=== PATIENT | female | born 1985 | race American Indian/Alaskan Native ===

== ENCOUNTER 2016-10-18 05:39 | Inpatient (IN) | payer MEDICAID, SELFPAY ==
[~2016-10-18 05:39] MED LIST: Citric Acid/Sodium Citrate Solution 30 ML Cup PO ONE; Metoclopramide 10 MG/2 ML SDV IVPUSH ONE; Sodium Chloride 0.9% 10 ML Syringe FLUSH PRN
[2016-10-18] MEDS: Lactated Ringers 1,000 ML IV SCH ×2 (06:12→06:58)
[2016-10-18] MEDS ORDERED: Morphine PF 10 MG/10 ML SDV ONE (07:22)
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
[2016-10-18] MEDS ORDERED: Oxytocin 10 Units/1 ML SDV ONE (07:24)
[2016-10-18] MEDS ORDERED: Oxytocin/Lactated Ringers 10 UNIT/1,000 ML BAG IV SCH (07:30)
--- NOTE | 2016-10-18 07:30 | PCM.OPNOTE ---
- General Post-Op/Procedure Note Date of Surgery/Procedure: 10/18/16 Operative Procedure(s): Repeat Findings: * Significant scar tissue formation between the subcutaneous tissue and fascia * Large, central hernia with omentum noted to be protruding through * Uterus with very thin, bulging lower uterine segment * Baby boy in a breech presentation with APGARS of 7 & 9, weight of 7 lbs 11 oz Pre Op Diagnosis: 37 week gestation. Hx of 4 prior c-sections. Morbid obesity - BMI 45. Preeclampsia without severe features. Breech presentation Post-Op Diagnosis: As above with also a large midline hernia Anesthesia Technique: Spinal Primary Surgeon: Patricia Owens Secondary Surgeon: Brenda Tpaia Anesthesia Provider: Carmen Ojeda Pathology: * Cord blood collected * Placenta discarded Fluid Replacement, Intraop: 3,000 Output, Urine Amount: 50 EBL in mLs: 500 Complications: None Condition: Good Free Text/Narrative:: The risks, benefits, indications, potential complications, and alternatives were explained to the patient and informed consent obtained. After induction of anesthesia, the patient was placed in a supine position and then draped and prepped in the usual sterile manner. A Pfannenstiel incision was made and carried down through the subcutaneous tissue. With making this incision a large bulging area of omentum noted. This was carefully packed back into the abdomen and humble clamped were placed on areas of fascia lateral to this defect and then used to aid in clearing off scar tissue from fascia, rectus from fascia, and eventually incise the fascia sharply and extend incision laterally. Peritoneal opening was extended longitudinally with pressure. An attempt was made to create a bladder flap, but could not due to positioning. A low transverse uterine incision was made sharply with a scalpel and extended bluntly in a cephalocaudad direction. A baby boy was delivered from a breech presentation with APGARS as above. After the umbilical cord was clamped and cut cord blood was obtained for evaluation. The placenta was removed intact and appeared normal. The uterus was exteriorized and cleared of clots. The uterine outline, tubes and ovaries appeared normal. The uterine incision was closed with running locked sutures of 0 Vicryl. Hemostasis was noted. The uterus was then placed back into the abdomen. The infracolic gutters were cleared of blood clots. The fascia was then further cleared of scar tissue using sharp dissection, both superior and inferior to the fascia. The fascia was then reapproximated with running suture of a looped 1 PDS. Palpation was done underneath the fascia as this was closed to ensure no defect or weak areas where hernia could recur. After closed additional palpation done superior and inferior to suture line again ensure no defect. The subcutaneous tissue was irrigated with sterile warm normal saline, hemostasis obtained with cautery. This tissue was closed with two layers of running 0 vicryl suture. The skin was reapproximated with running Subcuticular 4-0 monocryl sutures. Instrument, sponge, and needle counts were correct prior the abdominal closure and at the conclusion of the case.
[2016-10-18] MEDS ORDERED: Lidocaine 1% 4 ML ONE (08:07)
[2016-10-18] MEDS ORDERED: Ondansetron 4 MG/2 ML SDV ONE (08:11)
[2016-10-18] MEDS ORDERED: ceFAZolin 1 GM Vial ONE (08:12)
[2016-10-18] MEDS ORDERED: ePHEDrine/Normal Saline 25 MG/5 ML Syringe ONE ×2 (08:17→08:48)
[2016-10-18] MEDS ORDERED: Ketorolac 30 MG/ML SDV ONE (08:40)
[2016-10-18] MEDS ORDERED: Phenylephrine/Normal Saline 100 MCG/ML 10 ML Syringe ONE (08:48)
[2016-10-18] MEDS ORDERED: Dexamethasone 4 MG/ML SDV ONE (08:49)
[2016-10-18] MEDS ORDERED: diphenhydrAMINE 50 MG/ML SDV IVPUSH PRN (09:10)
[2016-10-18] MEDS ORDERED: Promethazine 6.25 MG in Sodium Chloride 0.9% 9 ML IV PRN (09:10)
[2016-10-18] MEDS ORDERED: Meperidine PF 50 MG/ML Syringe IVPUSH PRN (09:10)
--- NOTE | 2016-10-18 09:47 | PCM.POSTAN ---
POST ANESTHESIA ASSESSMENT - MENTAL STATUS Mental Status: alert - VITAL SIGNS Pulse Rate: 56 SaO2: 97 Resp Rate: 23 Blood Pressure: 117/57 Temperature: 97.2 C - RESPIRATORY Respiratory Status: respiratory rate WNL, airway patent, O2 saturation stable - CARDIOVASCULAR CV Status: pulse rate WNL, blood pressure stable, slow pulse rate - GASTROINTESTINAL GI Status: no symptoms (currently no N/V in PACU, ) - POST OP HYDRATION Hydration Status: adequate & stable
[2016-10-18] MEDS ORDERED: Ondansetron 4 MG/2 ML SDV IV PRN (11:37)
[2016-10-18] MEDS ORDERED: Naloxone 0.4 MG/ML SDV IVPUSH PRN (11:37)
[2016-10-18] MEDS ORDERED: Dextrose 5%-Lactated Ringers 1,000 ML IV SCH (11:37)
[2016-10-18] MEDS ORDERED: Lanolin 100% Cream 7 GM Tube TOP PRN (11:37)
[2016-10-18] MEDS: Ketorolac 30 MG/ML SDV IVPUSH SCH ×2 (15:52→21:35)
[2016-10-18] MEDS ORDERED: Lactated Ringers 500 ML IV ONE (21:49)
[2016-10-19] MEDS: Ketorolac 30 MG/ML SDV IVPUSH SCH (03:37)
--- NOTE | 2016-10-19 07:11 | PCM.PNPP ---
- General Info Date of Service: 10/19/16 Functional Status: Reports: pain controlled, tolerating diet, ambulating - Review of Systems General: Reports: No Symptoms Pulmonary: Reports: no symptoms Cardiovascular: Reports: No Symptoms Gastrointestinal: Reports: Abdominal pain (managed with pain medications ) Genitourinary: Reports: no symptoms Musculoskeletal: Reports: no symptoms - Patient Data Vital Signs - most recent: Last Vital Signs Temp 36.1 C 10/19/16 00:00 Pulse 60 10/19/16 00:00 Resp 16 10/19/16 06:00 BP 148/66 H 10/19/16 00:00 Pulse Ox 97 10/19/16 06:00 Weight - most recent: 157.578 kg I&O - last 24 hours: Intake & Output 10/18/16 10/19/16 10/19/16 22:59 06:59 14:59 Intake Total 480 1950 Output Total 685 700 Balance -205 1250 Lab Results - last 24 hrs: Laboratory Results - last 24 hr 10/18/16 10/19/16 Range/Units 05:54 06:04 WBC 16.50 H (3.98-10.04) K/mm3 RBC 3.84 L (3.98-5.22) M/mm3 Hgb 11.3 (11.2-15.7) gm/L Hct 33.7 L (34.1-44.9) % MCV 87.8 (79.4-94.8) fl MCH 29.4 (25.6-32.2) pg MCHC 33.5 (32.2-35.5) g/dl RDW Std Deviation 44.1 (36.4-46.3) fL Plt Count 201 (182-369) K/mm3 MPV 12.3 (9.4-12.3) fl Blood Type O POSITIVE Gel Antibody Screen Negative Med Orders - Current: Current Medications Diphenhydramine HCl (Benadryl) 25 mg IVPUSH Q6H PRN PRN Reason: pruritis Docusate Sodium (Colace) 100 mg PO Q12H PRN PRN Reason: Constipation Emollient Ointment (Lansinoh Hpa) 0 gm TOP ASDIRECTED PRN PRN Reason: Sore Nipples Ibuprofen (Motrin) 600 mg PO Q6H PRN PRN Reason: mild pain or fever Measles/Mumps/Rubella Vaccine Live (M-M-R Ii Vaccine) 0.5 ml SUBCUT .ONCE ONE Stop: 10/20/16 10:01 Meperidine HCl (Demerol) 12.5 mg IVPUSH ONETIME PRN PRN Reason: shivering Stop: 10/19/16 09:11 Naloxone HCl (Narcan) 0.1 mg IVPUSH SEECOMMENT PRN PRN Reason: Respiratory Depression Ondansetron HCl (Zofran) 4 mg IV Q8H PRN PRN Reason: Nausea/Vomiting Oxycodone/Acetaminophen (Percocet 325-5 Mg) 2 tab PO Q4H PRN PRN Reason: Pain (moderate 4-6) Discontinued Medications Cefazolin Sodium (Ancef) Confirm Administered Dose 3 gm .ROUTE .STK-MED ONE Stop: 10/18/16 08:13 Citric Acid/Sodium Citrate (Bicitra Solution) 30 ml PO ONETIME ONE Stop: 10/18/16 05:31 Last Admin: 10/18/16 06:14 Dose: 30 ml Dexamethasone (Dexamethasone) Confirm Administered Dose 4 mg .ROUTE .STK-MED ONE Stop: 10/18/16 08:50 Ephedrine Sulfate (Ephedrine In Ns) Confirm Administered Dose 25 mg .ROUTE .STK- MED ONE Stop: 10/18/16 08:18 Ephedrine Sulfate (Ephedrine In Ns) Confirm Administered Dose 25 mg .ROUTE .STK- MED ONE Stop: 10/18/16 08:49 Lactated Ringer's (Ringers, Lactated) 1,000 mls @ 125 mls/hr IV ASDIRECTED [facility] Last Admin: 10/18/16 06:58 Dose: 125 mls/hr Oxytocin/Lactated Ringer's (Pitocin In Lr 10 Units/1,000 Ml) 10 unit in 1,000 mls @ 100 mls/hr IV ASDIRECTED [facility] Cefazolin Sodium/Dextrose 3 gm (/ Premix) 75 mls @ 100 mls/hr IV ONETIME ONE Stop: 10/18/16 08:14 Last Admin: 10/18/16 11:41 Dose: Not Given Lidocaine HCl (Xylocaine-Mpf 1%) Confirm Administered Dose 4 mls @ as directed .ROUTE .STK-MED ONE Stop: 10/18/16 08:08 Promethazine HCl 6.25 mg/ (Sodium Chloride) 9.25 mls @ 5 mls/min IV ONETIME PRN PRN Reason: Nausea Stop: 10/18/16 18:00 Dextrose/Lactated Ringer's (Dextrose 5%-Lactated Ringers) 1,000 mls @ 125 mls/ hr IV ASDIRECTED [facility] Stop: 10/18/16 19:36 Last Infusion: 10/18/16 15:54 Dose: 125 mls/hr Lactated Ringer's (Ringers, Lactated) 500 mls @ 500 mls/hr IV .BOLUS ONE Stop: 10/18/16 22:48 Last Admin: 10/18/16 22:15 Dose: 500 mls/hr Ketorolac Tromethamine (Toradol) Confirm Administered Dose 30 mg .ROUTE .STK- MED ONE Stop: 10/18/16 08:41 Ketorolac Tromethamine (Toradol) 30 mg IVPUSH Q6H [facility]IS[facility] Stop: 10/19/16 03:31 Last Admin: 10/19/16 03:37 Dose: 30 mg Metoclopramide HCl (Reglan) 10 mg IVPUSH ONETIME ONE Stop: 10/18/16 05:31 Last Admin: 10/18/16 06:14 Dose: 10 mg Morphine Sulfate (Duramorph Pf) Confirm Administered Dose 10 mg .ROUTE .STK-MED ONE Stop: 10/18/16 07:23 Ondansetron HCl (Zofran) Confirm Administered Dose 4 mg .ROUTE .STK-MED ONE Stop: 10/18/16 08:12 Oxytocin (Pitocin) Confirm Administered Dose 20 unit .ROUTE .STK-MED ONE Stop: 10/18/16 07:25 Phenylephrine HCl (Phenylephrine In Ns 100 Mcg/Ml) Confirm Administered Dose 1 mg .ROUTE .STK-MED ONE Stop: 10/18/16 08:49 Sodium Chloride (Saline Flush) 10 ml FLUSH ASDIRECTED PRN PRN Reason: Keep Vein Open - Infant Interaction Disposition, : in Room with Family Interaction: Holding Feeding: Attempted ; Nursed Fair/Poor, Bottle Fed Infant Support Person: - Recovery Exam Fundal Tone: Firm Fundal Level: At Umbilicus Fundal Placement: Midline Lochia Amount: Small Lochia Color: Rubra/Red Perineum Description: Intact, Minimal Bruising/Swelling Episiotomy/Laceration: None Bladder Status: Indwelling Catheter in Place Urinary Elimination: Indwelling Catheter - Exam General: alert, oriented, cooperative Lungs: Clear to auscultation, Normal respiratory effort Cardiovascular: Regular Rate, Regular Rhythm Abdomen: soft, tenderness (Appropriate post op) Extremities: edema Skin: warm, dry, intact Wound/Incisions: healing well, drainage (minimal blood drainage on dressing) - Problem List & Annotations (1) 37 weeks gestation of SNOMED Code(s): 51355734 Code(s): Z3A.37 - 37 WEEKS GESTATION OF Status: Acute Current Visit: Yes (2) History of SNOMED Code(s): 480183916 Code(s): Z98.891 - HISTORY OF UTERINE SCAR FROM PREVIOUS SURGERY Status: Acute Current Visit: Yes (3) Preeclampsia SNOMED Code(s): 649215521 Code(s): O14.90 - UNSPECIFIED PRE-ECLAMPSIA, UNSPECIFIED TRIMESTER Status: Acute Current Visit: Yes Qualifiers: Trimester: third trimester Qualified Code(s): O14.93 - Unspecified pre- eclampsia, third trimester (4) Breech presentation SNOMED Code(s): 5602819 Code(s): O32.1XX0 - MATERNAL CARE FOR BREECH PRESENTATION, UNSP Status: Acute Current Visit: Yes Qualifiers: Fetus number: single or unspecified fetus Qualified Code(s): O32.1XX0 - Maternal care for breech presentation, not applicable or unspecified (5) BMI 45.0-49.9, adult SNOMED Code(s): 152045439, 758169263 Code(s): Z68.42 - BODY MASS INDEX (BMI) 45.0-49.9, ADULT Status: Acute Current Visit: Yes - Problem List Review Problem List Initiated/Reviewed/Updated: Yes - My Orders Last 24 Hours: My Active Orders 10/18/16 08:00 Insert Morales Catheter [Insert Urinary Catheter] [OM.PC] Routine 10/18/16 11:37 Activity as Tolerated [RC] .Routine Antiembolic Devices [RC] PER UNIT ROUTINE Communication Order [RC] PER UNIT ROUTINE Intake and Output [RC] Q4HR May Shower [RC] PER UNIT ROUTINE Notify Provider Intake and Out [RC] ASDIRECTED RT Incentive Spirometry [RC] Q2HWA Acetaminophen/oxyCODONE [Percocet 325-5 MG] 2 tab PO Q4H PRN Docusate Sodium [Colace] 100 mg PO Q12H PRN Lanolin [Lansinoh HPA] See Dose Instructions TOP ASDIRECTED PRN Naloxone [Narcan] 0.1 mg IVPUSH SEECOMMENT PRN Ondansetron [Zofran] 4 mg IV Q8H PRN Assess Lochia [WOMSER] Per Unit Routine Assess Uterine Involution [WOMSER] Per Unit Routine Breast Pump [WOMSER] Per Unit Routine Heat Therapy [OM.PC] Per Unit Routine Sequential Compression Device [OM.PC] Routine 10/18/16 14:15 Urinary Catheter Assessment [RC] ASDIRECTED 10/18/16 Lunch Regular Diet [DIET] 10/19/16 09:30 Ibuprofen [Motrin] 600 mg PO Q6H PRN 10/19/16 10:00 Urinary Catheter Removal [RC] Per Unit Routine 10/20/16 10:00 Measles, Mumps & Rubella [M-M-R II Vaccine] 0.5 ml SUBCUT .ONCE ONE - Assessment Assessment:: 31 y/o G6 now [id number] POD#1 from [facility] at 37 3/7 wks - Plan Plan:: [facility] * Routine cares * Patient most likely going to bottle feed * Discharge home in 1-2 days Pre-eclampsia * BP's mostly mild range, but few upper limit mild range. No symptoms. Plan BP check in 1-2 weeks
[2016-10-19] MEDS: Ibuprofen 600 MG Tab PO PRN ×2 (08:56→18:39)
[2016-10-19] MEDS: Acetaminophen/oxyCODONE 325-5 MG Tab PO PRN ×3 (11:14→21:13)
[2016-10-19] MEDS: Docusate Sodium 100 MG Cap PO PRN ×2 (11:16→23:14)
[2016-10-19] MEDS: Measles, Mumps & Rubella Vaccine 0.5 ML SDV SUBCUT ONE (23:04)
[2016-10-20] MEDS: Ibuprofen 600 MG Tab PO PRN (01:42)
--- NOTE | 2016-10-20 05:25 | PCM.PNPP ---
- General Info Date of Service: 10/20/16 Functional Status: Reports: pain controlled, tolerating diet, ambulating, urinating - Review of Systems General: Reports: No Symptoms Pulmonary: Reports: no symptoms Cardiovascular: Reports: No Symptoms Gastrointestinal: Reports: Abdominal pain (managed wtih medications) Genitourinary: Reports: no symptoms Musculoskeletal: Reports: no symptoms Neurological: Reports: No Symptoms - Patient Data Vital Signs - most recent: Last Vital Signs Temp 36.7 C 10/19/16 20:00 Pulse 56 L 10/19/16 20:00 Resp 18 10/19/16 20:00 BP 156/72 H 10/19/16 21:57 Pulse Ox 100 10/19/16 20:00 Weight - most recent: 157.578 kg I&O - last 24 hours: Intake & Output 10/19/16 10/19/16 10/20/16 14:59 22:59 06:59 Intake Total 120 Output Total 2950 550 Balance -2950 -430 Lab Results - last 24 hrs: Laboratory Results - last 24 hr 10/19/16 Range/Units 06:04 WBC 16.50 H (3.98-10.04) K/mm3 RBC 3.84 L (3.98-5.22) M/mm3 Hgb 11.3 (11.2-15.7) gm/L Hct 33.7 L (34.1-44.9) % MCV 87.8 (79.4-94.8) fl MCH 29.4 (25.6-32.2) pg MCHC 33.5 (32.2-35.5) g/dl RDW Std Deviation 44.1 (36.4-46.3) fL Plt Count 201 (182-369) K/mm3 MPV 12.3 (9.4-12.3) fl Med Orders - Current: Current Medications Docusate Sodium (Colace) 100 mg PO Q12H PRN PRN Reason: Constipation Last Admin: 10/19/16 23:14 Dose: 100 mg Emollient Ointment (Lansinoh Hpa) 0 gm TOP ASDIRECTED PRN PRN Reason: Sore Nipples Ibuprofen (Motrin) 600 mg PO Q6H PRN PRN Reason: mild pain or fever Last Admin: 10/20/16 01:42 Dose: 600 mg Measles/Mumps/Rubella Vaccine Live (M-M-R Ii Vaccine) 0.5 ml SUBCUT .ONCE ONE Stop: 10/20/16 10:01 Last Admin: 10/19/16 23:04 Dose: 0.5 ml Ondansetron HCl (Zofran) 4 mg IV Q8H PRN PRN Reason: Nausea/Vomiting Oxycodone/Acetaminophen (Percocet 325-5 Mg) 2 tab PO Q4H PRN PRN Reason: Pain (moderate 4-6) Last Admin: 10/19/16 21:13 Dose: 2 tab Discontinued Medications Cefazolin Sodium (Ancef) Confirm Administered Dose 3 gm .ROUTE .STK-MED ONE Stop: 10/18/16 08:13 Citric Acid/Sodium Citrate (Bicitra Solution) 30 ml PO ONETIME ONE Stop: 10/18/16 05:31 Last Admin: 10/18/16 06:14 Dose: 30 ml Dexamethasone (Dexamethasone) Confirm Administered Dose 4 mg .ROUTE .STK-MED ONE Stop: 10/18/16 08:50 Diphenhydramine HCl (Benadryl) 25 mg IVPUSH Q6H PRN PRN Reason: pruritis Ephedrine Sulfate (Ephedrine In Ns) Confirm Administered Dose 25 mg .ROUTE .STK- MED ONE Stop: 10/18/16 08:18 Ephedrine Sulfate (Ephedrine In Ns) Confirm Administered Dose 25 mg .ROUTE .STK- MED ONE Stop: 10/18/16 08:49 Lactated Ringer's (Ringers, Lactated) 1,000 mls @ 125 mls/hr IV ASDIRECTED [facility] Last Admin: 10/18/16 06:58 Dose: 125 mls/hr Oxytocin/Lactated Ringer's (Pitocin In Lr 10 Units/1,000 Ml) 10 unit in 1,000 mls @ 100 mls/hr IV ASDIRECTED [facility] Cefazolin Sodium/Dextrose 3 gm (/ Premix) 75 mls @ 100 mls/hr IV ONETIME ONE Stop: 10/18/16 08:14 Last Admin: 10/18/16 11:41 Dose: Not Given Lidocaine HCl (Xylocaine-Mpf 1%) Confirm Administered Dose 4 mls @ as directed .ROUTE .STK-MED ONE Stop: 10/18/16 08:08 Promethazine HCl 6.25 mg/ (Sodium Chloride) 9.25 mls @ 5 mls/min IV ONETIME PRN PRN Reason: Nausea Stop: 10/18/16 18:00 Dextrose/Lactated Ringer's (Dextrose 5%-Lactated Ringers) 1,000 mls @ 125 mls/ hr IV ASDIRECTED DAISHA Stop: 10/18/16 19:36 Last Infusion: 10/18/16 15:54 Dose: 125 mls/hr Lactated Ringer's (Ringers, Lactated) 500 mls @ 500 mls/hr IV .BOLUS ONE Stop: 10/18/16 22:48 Last Admin: 10/18/16 22:15 Dose: 500 mls/hr Ketorolac Tromethamine (Toradol) Confirm Administered Dose 30 mg .ROUTE .STK- MED ONE Stop: 10/18/16 08:41 Ketorolac Tromethamine (Toradol) 30 mg IVPUSH Q6H [facility] Stop: 10/19/16 03:31 Last Admin: 10/19/16 03:37 Dose: 30 mg Meperidine HCl (Demerol) 12.5 mg IVPUSH ONETIME PRN PRN Reason: shivering Stop: 10/19/16 09:11 Metoclopramide HCl (Reglan) 10 mg IVPUSH ONETIME ONE Stop: 10/18/16 05:31 Last Admin: 10/18/16 06:14 Dose: 10 mg Morphine Sulfate (Duramorph Pf) Confirm Administered Dose 10 mg .ROUTE .STK-MED ONE Stop: 10/18/16 07:23 Naloxone HCl (Narcan) 0.1 mg IVPUSH SEECOMMENT PRN PRN Reason: Respiratory Depression Ondansetron HCl (Zofran) Confirm Administered Dose 4 mg .ROUTE .STK-MED ONE Stop: 10/18/16 08:12 Oxytocin (Pitocin) Confirm Administered Dose 20 unit .ROUTE .STK-MED ONE Stop: 10/18/16 07:25 Phenylephrine HCl (Phenylephrine In Ns 100 Mcg/Ml) Confirm Administered Dose 1 mg .ROUTE .STK-MED ONE Stop: 10/18/16 08:49 Sodium Chloride (Saline Flush) 10 ml FLUSH ASDIRECTED PRN PRN Reason: Keep Vein Open - Interaction Disposition, : [place] in Room with Family Infant Interaction: Holding Feeding: Bottle Fed Infant Support Person: - Recovery Exam Fundal Tone: Firm Fundal Level: 1 Fingerbreadths Below Umbilicus Fundal Placement: Midline Lochia Amount: Small Lochia Color: Rubra/Red Perineum Description: Intact, Minimal Bruising/Swelling Episiotomy/Laceration: None Bladder Status: Voiding Urinary Elimination: Voided - Exam General: alert, oriented, cooperative Lungs: Clear to auscultation, Normal respiratory effort Cardiovascular: Regular Rate, Regular Rhythm Abdomen: soft, no distension, tenderness (appropriate post op) Extremities: edema Skin: warm, dry, intact Wound/Incisions: healing well, no drainage - Problem List & Annotations (1) 37 weeks gestation of SNOMED Code(s): 30558185 Code(s): Z3A.37 - 37 WEEKS GESTATION OF Status: Acute Current Visit: Yes (2) History of SNOMED Code(s): 766887356 Code(s): Z98.891 - HISTORY OF UTERINE SCAR FROM PREVIOUS SURGERY Status: Acute Current Visit: Yes (3) Preeclampsia SNOMED Code(s): 568224624 Code(s): O14.90 - UNSPECIFIED PRE-ECLAMPSIA, UNSPECIFIED TRIMESTER Status: Acute Current Visit: Yes Qualifiers: Trimester: third trimester Qualified Code(s): O14.93 - Unspecified pre- eclampsia, third trimester (4) Breech presentation SNOMED Code(s): 8065116 Code(s): O32.1XX0 - MATERNAL CARE FOR BREECH PRESENTATION, UNSP Status: Acute Current Visit: Yes Qualifiers: Fetus number: single or unspecified fetus Qualified Code(s): O32.1XX0 - Maternal care for breech presentation, not applicable or unspecified (5) BMI 45.0-49.9, adult SNOMED Code(s): 723889789, 136463459 Code(s): Z68.42 - BODY MASS INDEX (BMI) 45.0-49.9, ADULT Status: Acute Current Visit: Yes (6) S/P SNOMED Code(s): 675999539, 832308572 Code(s): Z98.891 - HISTORY OF UTERINE SCAR FROM PREVIOUS SURGERY Status: Acute Current Visit: Yes - Problem List Review Problem List Initiated/Reviewed/Updated: Yes - My Orders Last 24 Hours: My Active Orders 10/19/16 09:30 Ibuprofen [Motrin] 600 mg PO Q6H PRN 10/19/16 10:00 Urinary Catheter Removal [RC] Per Unit Routine 10/20/16 10:00 Measles, Mumps & Rubella [M-M-R II Vaccine] 0.5 ml SUBCUT .ONCE ONE - Assessment Assessment:: 31 y/o G6 now P5015 POD#2 from RLTCS at 37 3/7 wks - Plan Plan:: RLTCS * Routine cares * Bottle feeding * Discharge home today per patient preference as long as BP remain stable Pre-eclampsia * Few upper limit of normal BP's overnight, this morning value with systolic of 140 though. Patient otherwise doing well. As long as AM BP's remain mild range will d/c home today per patient preference. She will follow up next week for a BP check
--- NOTE | 2016-10-20 07:00 | PCM.DCSUM1 ---
Discharge Summary - Discharge Data Discharge Date: 10/20/16 Discharge Disposition: Home, Self-Care 01 Condition: Good - Discharge Diagnosis/Problem(s) (1) 37 weeks gestation of SNOMED Code(s): 91426177 ICD Code: Z3A.37 - 37 WEEKS GESTATION OF Status: Acute Current Visit: Yes (2) History of SNOMED Code(s): 197838875 ICD Code: Z98.891 - HISTORY OF UTERINE SCAR FROM PREVIOUS SURGERY Status: Acute Current Visit: Yes (3) Preeclampsia SNOMED Code(s): 595768892 ICD Code: O14.90 - UNSPECIFIED PRE-ECLAMPSIA, UNSPECIFIED TRIMESTER Status : Acute Current Visit: Yes Qualifiers: Trimester: third trimester Qualified Code(s): O14.93 - Unspecified pre- eclampsia, third trimester (4) Breech presentation SNOMED Code(s): 5649651 ICD Code: O32.1XX0 - MATERNAL CARE FOR BREECH PRESENTATION, UNSP Status: Acute Current Visit: Yes Qualifiers: Fetus number: single or unspecified fetus Qualified Code(s): O32.1XX0 - Maternal care for breech presentation, not applicable or unspecified (5) BMI 45.0-49.9, adult SNOMED Code(s): 725334594, 794973433 ICD Code: Z68.42 - BODY MASS INDEX (BMI) 45.0-49.9, ADULT Status: Acute Current Visit: Yes (6) S/P SNOMED Code(s): 388267582, 910699415 ICD Code: Z98.891 - HISTORY OF UTERINE SCAR FROM PREVIOUS SURGERY Status: Acute Current Visit: Yes - Patient Summary/Data Operative Procedure(s) Performed: Repeat Complications: None Consults: None Recommended Follow-up Testing/Procedures: Follow up in 1 week for incision check Follow up in 5-6 weeks for check Hospital Course: Patient is a admitted at 37 3/7 wks for planned RLTCS for preeclampsia and breech presentation. Also had history of 4 prior . Operation notable for midline fascial hernia. Also had findings of thin lower uterine segment. See procedure note for full details. Post op blood pressure remained mild range and patient was asymptomatic. She requested discharge home on POD#2 and was otherwise meeting all goals and so this was done. Plan for folow up in 1 week for incision check and BP check. - Patient Instructions Diet: Regular Diet as Tolerated Activity: No Lifting Over 10 Pounds Activity, Other: Pelvic Rest for 6 weeks Driving: Do Not Drive (While taking narcotics ) Showering/Bathing: May Shower, No Tub Bathing/Swimming Wound/Incision Care: Keep Operative Site/Wound Site Clean and Dry Notify Provider of: Fever, Increased Pain, Swelling and Redness, Drainage, Nausea and/or Vomiting - Discharge Plan Prescriptions/Med Rec: Acetaminophen/oxyCODONE [Percocet 325-5 MG] 2 tab PO Q4H PRN #30 tablet PRN Reason: Pain Home Medications: Home Meds Nystatin 100,000 unit TOP ASDIRECTED 10/10/16 [History] Pnv No.122/Iron/Folic Acid [ Multi Tablet] 1 each PO DAILY 10/10/16 [ History] Acetaminophen/oxyCODONE [Percocet 325-5 MG] 2 tab PO Q4H PRN #30 tablet [Rx] Docusate Sodium [Colace] 100 mg PO Q12H PRN #0 cap 10/18/16 [Rx] Ibuprofen [IJD: Ibuprofen] 600 mg PO Q6H PRN #0 tablet 10/18/16 [Rx] Patient Handouts: Smoking Cessation, Tips for Success, [id number], Smoking Hazards, Delivery, Care After Referrals: Patricia Owens MD [Primary Care Provider] - (1-2 weeks for incision check 5-6 weeks for check ) - Discharge Summary/Plan Comment DC Time >30 min.: No - Patient Data Vitals - Most Recent: Last Vital Signs Temp 36.2 C 10/20/16 05:34 Pulse 57 L 10/20/16 05:34 Resp 18 10/20/16 05:34 BP 141/71 H 10/20/16 05:34 Pulse Ox 95 10/20/16 05:34 Weight - Most Recent: 157.578 kg I&O - Last 24 hours: Intake & Output 10/19/16 10/20/16 10/20/16 22:59 06:59 14:59 Intake Total 120 Output Total 550 Balance -430 Lab Results - Last 24 hrs: Laboratory Results - last 24 hr 10/19/16 Range/Units 06:04 WBC 16.50 H (3.98-10.04) K/mm3 RBC 3.84 L (3.98-5.22) M/mm3 Hgb 11.3 (11.2-15.7) gm/L Hct 33.7 L (34.1-44.9) % MCV 87.8 (79.4-94.8) fl MCH 29.4 (25.6-32.2) pg MCHC 33.5 (32.2-35.5) g/dl RDW Std Deviation 44.1 (36.4-46.3) fL Plt Count 201 (182-369) K/mm3 MPV 12.3 (9.4-12.3) fl Med Orders - Current: Current Medications Docusate Sodium (Colace) 100 mg PO Q12H PRN PRN Reason: Constipation Last Admin: 10/19/16 23:14 Dose: 100 mg Emollient Ointment (Lansinoh Hpa) 0 gm TOP ASDIRECTED PRN PRN Reason: Sore Nipples Ibuprofen (Motrin) 600 mg PO Q6H PRN PRN Reason: mild pain or fever Last Admin: 10/20/16 01:42 Dose: 600 mg Measles/Mumps/Rubella Vaccine Live (M-M-R Ii Vaccine) 0.5 ml SUBCUT .ONCE ONE Stop: 10/20/16 10:01 Last Admin: 10/19/16 23:04 Dose: 0.5 ml Ondansetron HCl (Zofran) 4 mg IV Q8H PRN PRN Reason: Nausea/Vomiting Oxycodone/Acetaminophen (Percocet 325-5 Mg) 2 tab PO Q4H PRN PRN Reason: Pain (moderate 4-6) Last Admin: 10/19/16 21:13 Dose: 2 tab Discontinued Medications Cefazolin Sodium (Ancef) Confirm Administered Dose 3 gm .ROUTE .STK-MED ONE Stop: 10/18/16 08:13 Citric Acid/Sodium Citrate (Bicitra Solution) 30 ml PO ONETIME ONE Stop: 10/18/16 05:31 Last Admin: 10/18/16 06:14 Dose: 30 ml Dexamethasone (Dexamethasone) Confirm Administered Dose 4 mg .ROUTE .STK-MED ONE Stop: 10/18/16 08:50 Diphenhydramine HCl (Benadryl) 25 mg IVPUSH Q6H PRN PRN Reason: pruritis Ephedrine Sulfate (Ephedrine In Ns) Confirm Administered Dose 25 mg .ROUTE .STK- MED ONE Stop: 10/18/16 08:18 Ephedrine Sulfate (Ephedrine In Ns) Confirm Administered Dose 25 mg .ROUTE .STK- MED ONE Stop: 10/18/16 08:49 Lactated Ringer's (Ringers, Lactated) 1,000 mls @ 125 mls/hr IV ASDIRECTED [facility] Last Admin: 10/18/16 06:58 Dose: 125 mls/hr Oxytocin/Lactated Ringer's (Pitocin In Lr 10 Units/1,000 Ml) 10 unit in 1,000 mls @ 100 [facility] Cefazolin Sodium/Dextrose 3 gm (/ Premix) 75 mls @ 100 mls/hr IV ONETIME ONE Stop: 10/18/16 08:14 Last Admin: 10/18/16 11:41 Dose: Not Given Lidocaine HCl (Xylocaine-Mpf 1%) Confirm Administered Dose 4 mls @ as directed .ROUTE .STK-MED ONE Stop: 10/18/16 08:08 Promethazine HCl 6.25 mg/ (Sodium Chloride) 9.25 mls @ 5 mls/min IV ONETIME PRN PRN Reason: Nausea Stop: 10/18/16 18:00 Dextrose/Lactated Ringer's (Dextrose 5%-Lactated Ringers) 1,000 mls @ 125 mls/ [facility] Stop: 10/18/16 19:36 Last Infusion: 10/18/16 15:54 Dose: 125 mls/hr Lactated Ringer's (Ringers, Lactated) 500 mls @ 500 mls/hr IV .BOLUS ONE Stop: 10/18/16 22:48 Last Admin: 10/18/16 22:15 Dose: 500 mls/hr Ketorolac Tromethamine (Toradol) Confirm Administered Dose 30 mg .ROUTE .STK- MED ONE Stop: 10/18/16 08:41 Ketorolac Tromethamine (Toradol) 30 mg IVPUSH Q6H DAISHA Stop: 10/19/16 03:31 Last Admin: 10/19/16 03:37 Dose: 30 mg Meperidine HCl (Demerol) 12.5 mg IVPUSH ONETIME PRN PRN Reason: shivering Stop: 10/19/16 09:11 Metoclopramide HCl (Reglan) 10 mg IVPUSH ONETIME ONE Stop: 10/18/16 05:31 Last Admin: 10/18/16 06:14 Dose: 10 mg Morphine Sulfate (Duramorph Pf) Confirm Administered Dose 10 mg .ROUTE .STK-MED ONE Stop: 10/18/16 07:23 Naloxone HCl (Narcan) 0.1 mg IVPUSH SEECOMMENT PRN PRN Reason: Respiratory Depression Ondansetron HCl (Zofran) Confirm Administered Dose 4 mg .ROUTE .STK-MED ONE Stop: 10/18/16 08:12 Oxytocin (Pitocin) Confirm Administered Dose 20 unit .ROUTE .STK-MED ONE Stop: 10/18/16 07:25 Phenylephrine HCl (Phenylephrine In Ns 100 Mcg/Ml) Confirm Administered Dose 1 mg .ROUTE .STK-MED ONE Stop: 10/18/16 08:49 Sodium Chloride (Saline Flush) 10 ml FLUSH ASDIRECTED PRN PRN Reason: Keep Vein Open *Q Meaningful Use (DIS) - VTE *Q VTE Criteria *Q: - Stroke *Q Stroke Criteria *Q: - AMI *Q AMI Criteria *Q:
[2016-10-20] MEDS: Acetaminophen/oxyCODONE 325-5 MG Tab PO PRN (09:05)
[2016-10-20] MEDS: Measles, Mumps & Rubella Vaccine 0.5 ML SDV SUBCUT ONE (09:06)
[2016-10-20 09:55] VITALS: BP 132/99
== END 2016-10-20 11:03 | disposition home or self-care (01) | DRG 765 ==
LOC: JD.OB 05:39 → JD.MS 10-20 03:52
PROVIDERS: ADMIT Obstetrics & Gynecology; ATTEND Obstetrics & Gynecology
PROC: 10D00Z1 Extraction of Products of Conception, Low, Open Approach (ICD-10-PCS; principal; 2016-10-18)
DX: O14.94 Unspecified pre-eclampsia, complicating childbirth (principal); Z68.42 Body mass index [BMI] 45.0-49.9, adult; Z3A.37 37 weeks gestation of pregnancy; Z37.0 Single live birth; O34.211 Maternal care for low transverse scar from previous cesarean delivery; N85.8 Other specified noninflammatory disorders of uterus; O99.214 Obesity complicating childbirth; E66.01 Morbid (severe) obesity due to excess calories; O32.1XX0 Maternal care for breech presentation, not applicable or unspecified; Z87.891 Personal history of nicotine dependence; Z88.0 Allergy status to penicillin
CPT/HCPCS: 01961; 01967; 36415; 85025; 85027; 86850; 86900; 86901; 90707; 94762; A9270-GY; J0690; J1100; J1885; J2270; J2405; J2590; J2765; J7042; J7050; J7120

== ENCOUNTER 2018-08-26 19:07 | Emergency (ER) | payer MEDICAID, SELFPAY ==
[2018-08-26 19:24] VITALS: BP 155/110
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
--- NOTE | 2018-08-27 06:15 | CR ---
Right foot: Two portable views of the right foot were obtained. Comparison: No previous foot exam. Small plantar spur is noted. No fracture or other bony abnormality is identified. Impression: 1. Small plantar spur. 2. No additional abnormality is appreciated on two-view right foot exam. Diagnostic code #2
== END 2018-08-26 19:58 | disposition home or self-care (01) ==
LOC: JD.ED 19:07
DX: S96.911A Strain of unspecified muscle and tendon at ankle and foot level, right foot, initial encounter (principal); Z88.0 Allergy status to penicillin; F17.210 Nicotine dependence, cigarettes, uncomplicated; X50.9XXA Other and unspecified overexertion or strenuous movements or postures, initial encounter
CPT/HCPCS: 73620-26-RT; 73620-RT; 99282; 99283-25

== ENCOUNTER 2018-09-26 09:19 | Emergency (ER) | payer MEDICAID, OTHER ==
[2018-09-26 09:29] VITALS: BP 155/66
[2018-09-26] MEDS ORDERED: Ondansetron 4 MG Tab.DIS PO ONE (09:52)
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
--- NOTE | 2018-09-26 13:57 | US ---
First trimester obstetrical ultrasound: Multiple real-time images were obtained transvaginally. Comparison: No previous study for current . Dates: Current ultrasound: [facility] 04/10/19, gestational age 12 weeks 0 days Single intrauterine gestation is seen. Amniotic fluid volume is normal. Embryo is identified. No subchorionic hemorrhage is seen. Maternal ovaries are not visualized. Right and left maternal adnexa appear within normal limits. Measurements: [place]-rump length: 5.39 cm - 12 weeks 0 days Heart rate: 163 bpm Impression: 1. Single intrauterine fetus, dates as noted above. 2. No complicating process is identified by ultrasound at this time. Diagnostic code #1 I agree with preliminary report issued by [facility], (please note gestational age correction as noted above) ([facility] report finalized on 09/26/18, 1:57 PM Central Time. Code #2
== END 2018-09-26 13:12 | disposition home or self-care (01) ==
LOC: JD.ED 09:19
DX: O99.89 Other specified diseases and conditions complicating pregnancy, childbirth and the puerperium (principal); R10.32 Left lower quadrant pain; O99.331 Smoking (tobacco) complicating pregnancy, first trimester; F17.210 Nicotine dependence, cigarettes, uncomplicated; Z88.0 Allergy status to penicillin; Z3A.10 10 weeks gestation of pregnancy
CPT/HCPCS: 36415; 76817; 81001; 81025; 84702; 87086; 87088; 87186; 99284; A9270; 99283

== ENCOUNTER 2019-03-28 20:08 | Inpatient (IN) | payer MEDICAID ==
[2019-03-28] MEDS ORDERED: Sodium Chloride 0.9% 10 ML Syringe FLUSH PRN ×2 (20:44→21:03)
[2019-03-28] MEDS ORDERED: Metoclopramide 10 MG/2 ML SDV ONE (21:02)
[2019-03-28] MEDS ORDERED: Lactated Ringers 1,000 ML ONE ×4 (21:03→22:38)
[2019-03-28] MEDS ORDERED: Metoclopramide 10 MG/2 ML SDV IVPUSH ONE (21:03)
[2019-03-28] MEDS ORDERED: Citric Acid/Sodium Citrate Solution 30 ML Cup PO ONE (21:03)
[2019-03-28] MEDS ORDERED: ceFAZolin 2 GM in Premix Bag 1 BAG IV ONE (21:03)
[2019-03-28] MEDS ORDERED: Nalbuphine 10 MG/1 ML Vial IVPUSH PRN (21:03)
[2019-03-28] MEDS ORDERED: Citric Acid/Sodium Citrate Solution 30 ML Cup ONE (21:03)
[2019-03-28] MEDS ORDERED: ceFAZolin 1 GM in Premix Bag 1 BAG IV ONE (21:03)
[2019-03-28] MEDS ORDERED: Labetalol 100 MG/20 ML MDV IVPUSH ONE (21:03)
[2019-03-28] MEDS ORDERED: Oxytocin/Lactated Ringers 10 UNIT/1,000 ML BAG IV SCH (21:15)
[2019-03-28] MEDS ORDERED: Lactated Ringers 1,000 ML IV SCH (21:15)
[2019-03-28] MEDS ORDERED: ceFAZolin 1 GM Vial ONE ×2 (21:15→21:51)
[2019-03-28] MEDS ORDERED: Phenylephrine 1% 10 MG/ML SDV ONE (21:15)
[2019-03-28] MEDS ORDERED: Morphine PF 10 MG/10 ML SDV ONE (21:15)
[2019-03-28] MEDS ORDERED: Oxytocin 10 Units/1 ML SDV ONE (21:17)
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
[2019-03-28] MEDS ORDERED: Ketamine 500 mg/10 ML MDV ONE (21:54)
[2019-03-28] MEDS ORDERED: Ketorolac 30 MG/ML SDV ONE (22:06)
--- NOTE | 2019-03-28 23:14 | PCM.POSTAN ---
POST ANESTHESIA ASSESSMENT - MENTAL STATUS Mental Status: Alert, Oriented - RESPIRATORY Respiratory Status: Respiratory Rate WNL, Airway Patent, O2 Saturation Stable - CARDIOVASCULAR CV Status: Pulse Rate WNL, Blood Pressure Stable - GASTROINTESTINAL GI Status: No Symptoms - PAIN Pain Score: 0 - POST OP HYDRATION Hydration Status: Adequate & Stable - OBSERVATIONS Free Text/Narrative:: no anesthesia complications noted
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
--- NOTE | 2019-03-28 23:24 | PCM.OPNOTE ---
- General Post-Op/Procedure Note Date of Surgery/Procedure: 03/28/19 Operative Procedure(s): Repeat low transverse - vacuum assisted Findings: Dense scar tissue noted in subcutaneous tissue superior to fascia. Fascia very difficult to identify and with areas to the right of midline that appear to be defects/hernias. Large amount of omentum noted to be somewhat adherent to the anterior abdominal wall. Once this was able to be moved/packed into the abdomen with wet sponges uterus could be seen deep in the pelvis. Extremely thin lower uterine segment which was bulging with underlying BOW. Thin meconium fluid noted. Baby boy in vertex presentation. APGARS of 8 & 9. Weight of 6 lbs 12 oz. Grossly normal appearance of the uterus, fallopian tubes, and ovaries otherwise Pre Op Diagnosis: 38 1/7 wks gestation. Hx of x 5. Preeclampsia - severe Post-Op Diagnosis: None Anesthesia Technique: Spinal Primary Surgeon: Patricia Owens Secondary Surgeon: Jose C Foster Jr Anesthesia Provider: Colin Parra Reason Battery Loader Was Necessary: BMI of patient. Number of prior surgeries and expected degree of difficulty of case. Pathology: Cord blood collected. Placenta discarded. Fluid Replacement, Intraop: 3,600 Output, Urine Amount: 50 EBL in mLs: 400 Complications: None Condition: Good Free Text/Narrative:: The risks, benefits, indications, potential complications, and alternatives were explained to the patient and informed consent obtained. After induction of anesthesia, the patient was placed in a supine position and then draped and prepped in the usual sterile manner. A Pfannenstiel incision was made and carried down through the subcutaneous tissue. Fascia difficult to identify, but able to be cleared off slowly and incised. Incision extended laterally. The fascia was from the underlying rectus tissue superiorly and inferiorly as much as possible. Omentum noted to be slightly adherent to anterior abdominal wall. This was taken down and peritoneum entered. Bowel and omentum packed into the upper abdomen with wet laps. The utero-vesical peritoneal reflection was incised transversely and the bladder flap was bluntly freed from the lower uterine segment. A low transverse uterine incision was made sharply with a scalpel and extended bluntly in a cephalocaudad direction. A baby boy was delivered from a vertex presentation with aid of vacuum extraction. APGARS as above. After the umbilical cord was clamped and cut cord blood was obtained for evaluation. The placenta was removed intact and appeared normal. The uterus was exteriorized and cleared of clots. Very thin lower uterine segment again noted, but tubes and ovaries appeared normal. The uterine incision was closed with running locked sutures of 0 Vicryl. The uterus was then placed back into the abdomen. The infracolic gutters were cleared of blood clots. The fascia was then reapproximated with running sutures of looped 1 PDS. The subcutaneous tissue was irrigated with sterile warm normal saline, hemostasis obtained with cautery. This layer was also closed with running 0 monocryl suture. The skin was reapproximated with running Subcuticular 4-0 monocryl sutures. Instrument, sponge, and needle counts were correct prior the abdominal closure and at the conclusion of the case.
[2019-03-29] MEDS ORDERED: Ondansetron 4 MG/2 ML SDV IV PRN (00:18)
[2019-03-29] MEDS ORDERED: Docusate Sodium 100 MG Cap PO PRN (00:18)
[2019-03-29] MEDS ORDERED: Naloxone 0.4 MG/ML SDV IVPUSH PRN (00:18)
[2019-03-29] MEDS ORDERED: Measles, Mumps & Rubella Vaccine 0.5 ML SDV SUBCUT ONE (00:18)
[2019-03-29] MEDS ORDERED: diphenhydrAMINE 50 MG/ML SDV IVPUSH PRN (00:18)
[2019-03-29] MEDS ORDERED: Calcium Gluconate 10% 1 GM/10 ML SDV IV PRN (00:18)
[2019-03-29] MEDS ORDERED: Magnesium Sulfate/Water 2 GM in Premix Bag 1 BAG IV ONE (00:18)
[2019-03-29] MEDS ORDERED: Magnesium Sulfate/Water 40 GM/1,000 ML BAG IV SCH (00:18)
[2019-03-29] MEDS ORDERED: Magnesium Sulfate/Water 4 GM in Premix Bag 1 BAG IV ONE (00:18)
[2019-03-29] MEDS: Lactated Ringers 1,000 ML IV SCH ×4 (00:58→21:20)
[2019-03-29] MEDS ORDERED: FLU Vacc QS2019-20(6MOS+)/PF 60 MCG/0.5 ML SYRINGE IM ONE (01:30)
[2019-03-29] MEDS ORDERED: Carboprost Tromethamine 250 MCG/1 ML Amp ONE ×2 (02:18→03:00)
[2019-03-29] MEDS ORDERED: Misoprostol 200 MCG Tab ONE (02:32)
[2019-03-29] MEDS ORDERED: fentaNYL 100 MCG/2 ML SDV ONE (02:37)
[2019-03-29] MEDS ORDERED: Oxytocin/Lactated Ringers 10 UNIT/1,000 ML BAG IV ONE (02:48)
[2019-03-29] MEDS ORDERED: Carboprost Tromethamine 250 MCG/1 ML Amp IM ONE ×2 (03:06→03:07)
[2019-03-29] MEDS ORDERED: Misoprostol 200 MCG Tab PO STA (03:08)
[2019-03-29] MEDS ORDERED: ceFAZolin 2 GM in Premix Bag 1 BAG IV ONE (03:10)
[2019-03-29] MEDS ORDERED: ceFAZolin/Dextrose,Iso-Osmotic 2 GM/50 ML Duplex Bag IV ONE (03:11)
[2019-03-29] MEDS ORDERED: fentaNYL 100 MCG/2 ML SDV IVPUSH ONE ×2 (03:13)
[2019-03-29] MEDS ORDERED: Oxytocin/Lactated Ringers 10 UNIT/1,000 ML BAG IV SCH (03:15)
--- NOTE | 2019-03-29 03:19 | PCM.SN ---
- Free Text/Narrative Note: 0300 Called by nursing staff at 0225 that patient initially with scant bleeding after surgery, but now passing clots. Asked nursing staff to pause magnesium infusion and give IM hemabate. Proceeded to unit. By time there patient has passed several more clots. Tranexamic acid and 600 mcg buccal cytotec ordered. Examination showed clot in RUTH. Patient given 50 mcg of fentanyl x2 to aid in exploration which was still challenging as cervix only about 3 cm dilated. Eventually with combination of medications, exam, and fundal massage uterine clots thought to all be evacuated. Patient given an additional dose of IM hemabate to facilitate uterine contraction and dose of 2 grams of Ancef to cover for multiple sweeps of RUTH/uterine evacuation. Patricia Owens MD
[2019-03-29] MEDS ORDERED: Labetalol 100 MG Tab PO ONE ×2 (04:15→07:03)
[2019-03-29] MEDS: Acetaminophen/oxyCODONE 325-5 MG Tab PO PRN ×3 (08:07→22:39)
--- NOTE | 2019-03-29 10:45 | PCM48HPAN ---
Post Anesthesia Note - EVALUATION WITHIN 48HRS OF ANESTHETIC Vital Signs in Normal Range: Yes Patient Participated in Evaluation: Yes Respiratory Function Stable: Yes Airway Patent: Yes Cardiovascular Function Stable: Yes Hydration Status Stable: Yes Pain Control Satisfactory: Yes Nausea and Vomiting Control Satisfactory: Yes Mental Status Recovered: Yes Vital Signs: Last Vital Signs Temp 37.1 C 03/29/19 08:30 Pulse 74 03/29/19 07:14 Resp 14 03/29/19 08:30 BP 123/54 L 03/29/19 09:15 Pulse Ox 95 03/29/19 08:30 - COMMENTS/OBSERVATIONS Free Text/Narrative:: no anesthesia complications noted
--- NOTE | 2019-03-29 11:21 | PCM.PNPP ---
- General Info Date of Service: 03/29/19 Functional Status: Reports: Pain Controlled, Tolerating Diet, Ambulating, Urinating - Review of Systems General: Reports: No Symptoms Pulmonary: Reports: No Symptoms Cardiovascular: Reports: No Symptoms Gastrointestinal: Reports: Abdominal Pain (cramping / incisional pain, managed by medications ) Genitourinary: Reports: No Symptoms Musculoskeletal: Reports: No Symptoms Neurological: Denies: Headache, Other (vision changes ) - Patient Data Vital Signs - Most Recent: Last Vital Signs Temp 37.1 C 03/29/19 08:30 Pulse 74 03/29/19 07:14 Resp 14 03/29/19 08:30 BP 119/62 03/29/19 11:00 Pulse Ox 95 03/29/19 08:30 Weight - Most Recent: 142.428 kg I&O - Last 24 Hours: Intake & Output 03/28/19 03/29/19 03/29/19 22:59 06:59 14:59 Intake Total 3850 Output Total 50 1000 175 Balance -50 2850 -175 Lab Results - Last 24 Hours: Laboratory Results - last 24 hr 03/28/19 03/28/19 03/28/19 Range/Units 21:06 21:06 21:06 WBC 12.00 H (3.98-10.04) K/mm3 RBC 4.42 (3.98-5.22) M/mm3 Hgb 12.9 D (11.2-15.7) gm/dl Hct 38.7 (34.1-44.9) % MCV 87.6 (79.4-94.8) fl MCH 29.2 (25.6-32.2) pg MCHC 33.3 (32.2-35.5) g/dl RDW Std Deviation 50.6 H (36.4-46.3) fL Plt Count 194 (182-369) K/mm3 MPV 12.0 (9.4-12.3) fl Neut % (Auto) 67.7 (34.0-71.1) % Lymph % (Auto) 19.4 (19.3-51.7) % Rock % (Auto) 11.2 (4.7-12.5) % Eos % (Auto) 1.2 (0.7-5.8) Baso % (Auto) 0.2 (0.1-1.2) % Neut # (Auto) 8.14 H (1.56-6.13) K/mm3 Lymph # (Auto) 2.33 (1.18-3.74) K/mm3 Rock # (Auto) 1.34 H (0.24-0.36) K/mm3 Eos # (Auto) 0.14 (0.04-0.36) K/mm3 Baso # (Auto) 0.02 (0.01-0.08) K/mm3 BUN 14 (7-18) mg/dL Creatinine 0.9 (0.55-1.02) mg/dL Est Cr Clr Drug Dosing 103.85 mL/min Estimated GFR (MDRD) > 60 (>60) mL/min Hemoglobin A1c (4.50-6.20) % Uric Acid 5.4 (2.6-6.0) mg/dL AST 11 L (15-37) U/L ALT 12 L (14-59) U/L Lactate Dehydrogenase 272 H (81-234) U/L Urine Opiates Screen (BEGRLR=116) Ur Buprenorphine Scrn (CUTOFF=10) Ur Oxycodone Screen (ZDL8AE=519) Urine Methadone Screen (XSWNSD=500) Ur Propoxyphene Screen (EHUXPM=452) Ur Barbiturates Screen (PWYKTZ=285) Ur Tricyclics Screen (KJCJAX=079) Ur Phencyclidine Scrn (CUTOFF=25) Ur Amphetamine Screen (QEGANF=190) U Methamphetamines Scrn (JZBERL=886) U Benzodiazepines Scrn (TDMBYQ=467) U Cocaine Metab Screen (KIJFAK=506) U Marijuana (THC) Screen (CUTOFF=50) RPR Non-reactive (NONREACTIVE) Blood Type Gel Antibody Screen 03/28/19 03/28/19 03/28/19 Range/Units 21:06 21:06 21:30 WBC (3.98-10.04) K/mm3 RBC (3.98-5.22) M/mm3 Hgb (11.2-15.7) gm/dl Hct (34.1-44.9) % MCV (79.4-94.8) fl MCH (25.6-32.2) pg MCHC (32.2-35.5) g/dl RDW Std Deviation (36.4-46.3) fL Plt Count (182-369) K/mm3 MPV (9.4-12.3) fl Neut % (Auto) (34.0-71.1) % Lymph % (Auto) (19.3-51.7) % Rock % (Auto) (4.7-12.5) % Eos % (Auto) (0.7-5.8) Baso % (Auto) (0.1-1.2) % Neut # (Auto) (1.56-6.13) K/mm3 Lymph # (Auto) (1.18-3.74) K/mm3 Rock # (Auto) (0.24-0.36) K/mm3 Eos # (Auto) (0.04-0.36) K/mm3 Baso # (Auto) (0.01-0.08) K/mm3 BUN (7-18) mg/dL Creatinine (0.55-1.02) mg/dL Est Cr Clr Drug Dosing mL/min Estimated GFR (MDRD) (>60) mL/min Hemoglobin A1c 5.00 (4.50-6.20) % Uric Acid (2.6-6.0) mg/dL AST (15-37) U/L ALT (14-59) U/L Lactate Dehydrogenase (81-234) U/L Urine Opiates Screen Negative (FPMLYE=656) Ur Buprenorphine Scrn Negative (CUTOFF=10) Ur Oxycodone Screen Negative (DWF7TV=002) Urine Methadone Screen Negative (PJAMDN=948) Ur Propoxyphene Screen Negative (MTENMO=124) Ur Barbiturates Screen Negative (GBMFHL=169) Ur Tricyclics Screen Negative (FFUNXU=185) Ur Phencyclidine Scrn Negative (CUTOFF=25) Ur Amphetamine Screen Negative (LBQSLE=506) U Methamphetamines Scrn Negative (PIYBQA=506) U Benzodiazepines Scrn Negative (NDETQG=226) U Cocaine Metab Screen Negative (VMQRXW=508) U Marijuana (THC) Screen Presumptive positive H (CUTOFF=50) RPR (NONREACTIVE) Blood Type O POSITIVE Gel Antibody Screen Negative 03/29/19 Range/Units 05:41 WBC 27.69 H (3.98-10.04) K/mm3 RBC 3.86 L (3.98-5.22) M/mm3 Hgb 11.2 D (11.2-15.7) gm/dl Hct 34.1 (34.1-44.9) % MCV 88.3 (79.4-94.8) fl MCH 29.0 (25.6-32.2) pg MCHC 32.8 (32.2-35.5) g/dl RDW Std Deviation 51.1 H (36.4-46.3) fL Plt Count 178 L (182-369) K/mm3 MPV 12.2 (9.4-12.3) fl Neut % (Auto) (34.0-71.1) % Lymph % (Auto) (19.3-51.7) % Rock % (Auto) (4.7-12.5) % Eos % (Auto) (0.7-5.8) Baso % (Auto) (0.1-1.2) % Neut # (Auto) (1.56-6.13) K/mm3 Lymph # (Auto) (1.18-3.74) K/mm3 Rock # (Auto) (0.24-0.36) K/mm3 Eos # (Auto) (0.04-0.36) K/mm3 Baso # (Auto) (0.01-0.08) K/mm3 BUN (7-18) mg/dL Creatinine (0.55-1.02) mg/dL Est Cr Clr Drug Dosing mL/min Estimated GFR (MDRD) (>60) mL/min Hemoglobin A1c (4.50-6.20) % Uric Acid (2.6-6.0) mg/dL AST (15-37) U/L ALT (14-59) U/L Lactate Dehydrogenase (81-234) U/L Urine Opiates Screen (SSKQNF=126) Ur Buprenorphine Scrn (CUTOFF=10) Ur Oxycodone Screen (LWS8AP=319) Urine Methadone Screen (CVXRGS=366) Ur Propoxyphene Screen (TCCGHD=095) Ur Barbiturates Screen (VSTIUL=901) Ur Tricyclics Screen (PLHAEK=531) Ur Phencyclidine Scrn (CUTOFF=25) Ur Amphetamine Screen (PLFWRH=498) U Methamphetamines Scrn (APAGRO=579) U Benzodiazepines Scrn (RPUHWS=909) U Cocaine Metab Screen (NIUVSD=107) U Marijuana (THC) Screen (CUTOFF=50) RPR (NONREACTIVE) Blood Type Gel Antibody Screen Med Orders - Current: Current Medications Calcium Gluconate (Calcium Gluconate) 1 gm IV ASDIRECTED PRN PRN Reason: respiratory distress Diphenhydramine HCl (Benadryl) 25 mg IVPUSH Q6H PRN PRN Reason: Itching or Nausea Docusate Sodium (Colace) 100 mg PO Q12H PRN PRN Reason: Constipation Lactated Ringer's (Ringers, Lactated) 1,000 mls @ 75 mls/hr IV ASDIRECTED [facility] Last Admin: 03/29/19 08:07 Dose: 75 mls/hr Magnesium Sulfate (Magnesium Sulfate In Water Premix) 40 gm in 1,000 mls @ 50 mls/hr IV ASDIRECTED [facility] Last Admin: 03/29/19 01:38 Dose: 50 mls/hr Oxytocin/Lactated Ringer's (Pitocin In Lr 10 Units/1,000 Ml) 10 unit in 1,000 mls @ 500 mls/hr IV TITRATE DAISHA; Protocol Last Admin: 03/29/19 03:00 Dose: 500 mls/hr Ibuprofen (Motrin) 600 mg PO Q6H PRN PRN Reason: mild pain or fever Ketorolac Tromethamine (Toradol) 30 mg IVPUSH Q6H [facility] Stop: 03/29/19 16:31 Naloxone HCl (Narcan) 0.1 mg IVPUSH SEECOMMENT PRN PRN Reason: Respiratory Depression Ondansetron HCl (Zofran) 4 mg IV Q8H PRN PRN Reason: Nausea/Vomiting Last Admin: 03/29/19 04:26 Dose: 4 mg Oxycodone/Acetaminophen (Percocet 325-5 Mg) 2 tab PO Q4H PRN PRN Reason: Pain (moderate 4-6) Last Admin: 03/29/19 08:07 Dose: 2 tab Discontinued Medications Carboprost Tromethamine (Hemabate Ds) Confirm Administered Dose 250 mcg .ROUTE .STK-MED ONE Stop: 03/29/19 02:19 Last Admin: 03/29/19 07:23 Dose: Not Given Carboprost Tromethamine (Hemabate Ds) Confirm Administered Dose 250 mcg .ROUTE .STK-MED ONE Stop: 03/29/19 03:01 Last Admin: 03/29/19 07:24 Dose: Not Given Carboprost Tromethamine (Hemabate Ds) 250 mcg IM ONETIME ONE Stop: 03/29/19 03:07 Last Admin: 03/29/19 02:20 Dose: 250 mcg Carboprost Tromethamine (Hemabate Ds) 250 mcg IM ONETIME ONE Stop: 03/29/19 03:08 Last Admin: 03/29/19 02:51 Dose: 250 mcg Cefazolin Sodium (Ancef) Confirm Administered Dose 2 gm .ROUTE .STK-MED ONE Stop: 03/28/19 21:16 Cefazolin Sodium (Ancef) Confirm Administered Dose 1 gm .ROUTE .STK-MED ONE Stop: 03/28/19 21:52 Cefazolin Sodium/Dextrose (Ancef) Confirm Administered Dose 2 gm IV .STK-MED ONE Stop: 03/29/19 03:12 Last Admin: 03/29/19 07:24 Dose: Not Given Citric Acid/Sodium Citrate (Bicitra Solution) Confirm Administered Dose 30 ml .ROUTE .STK-MED ONE Stop: 03/28/19 21:04 Citric Acid/Sodium Citrate (Bicitra Solution) 30 ml PO ONETIME ONE Stop: 03/28/19 21:04 Last Admin: 03/28/19 21:19 Dose: 30 ml Fentanyl (Sublimaze) Confirm Administered Dose 100 mcg .ROUTE .STK-MED ONE Stop: 03/29/19 02:38 Last Admin: 03/29/19 07:23 Dose: Not Given Fentanyl (Sublimaze) 50 mcg IVPUSH ONETIME ONE Stop: 03/29/19 03:14 Last Admin: 03/29/19 02:40 Dose: 50 mcg Fentanyl (Sublimaze) 50 mcg IVPUSH ONETIME ONE Stop: 03/29/19 03:14 Last Admin: 03/29/19 07:25 Dose: Not Given Lactated Ringer's (Ringers, Lactated) Confirm Administered Dose 1,000 mls @ as directed .ROUTE .STK-MED ONE Stop: 03/28/19 21:04 Cefazolin Sodium/Dextrose 1 gm (/ Premix) 50 mls @ 100 mls/hr IV ONETIME ONE Stop: 03/28/19 21:32 Cefazolin Sodium/Dextrose 2 gm (/ Premix) 50 mls @ 100 mls/hr IV ONETIME ONE Stop: 03/28/19 21:32 Lactated Ringer's (Ringers, Lactated) 1,000 mls @ 125 mls/hr IV ASDIRECTED DAISHA Last Admin: 03/28/19 21:20 Dose: 125 mls/hr Oxytocin/Lactated Ringer's (Pitocin In Lr 10 Units/1,000 Ml) 10 unit in 1,000 mls @ 100 mls/hr IV ASDIRECTED DAISHA; Protocol Lactated Ringer's (Ringers, Lactated) Confirm Administered Dose 1,000 mls @ as directed .ROUTE .STK-MED ONE Stop: 03/28/19 22:11 Lactated Ringer's (Ringers, Lactated) Confirm Administered Dose 1,000 mls @ as directed .ROUTE .STK-MED ONE Stop: 03/28/19 22:38 Lactated Ringer's (Ringers, Lactated) Confirm Administered Dose 1,000 mls @ as directed .ROUTE .STK-MED ONE Stop: 03/28/19 22:39 Magnesium Sulfate 4 gm/ Premix 50 mls @ 150 mls/hr IV ONETIME ONE Stop: 03/29/19 00:37 Last Admin: 03/29/19 01:09 Dose: 150 mls/hr Magnesium Sulfate 2 gm/ Premix 50 mls @ 300 mls/hr IV ONETIME ONE Stop: 03/29/19 00:27 Last Admin: 03/29/19 00:51 Dose: 300 mls/hr Oxytocin/Lactated Ringer's (Pitocin In Lr 10 Units/1,000 Ml) Confirm Administered Dose 10 unit in 1,000 mls @ as directed IV .STK-MED ONE Stop: 03/29/19 02:49 Last Admin: 03/29/19 07:24 Dose: Not Given Cefazolin Sodium/Dextrose 2 gm (/ Premix) 50 mls @ 100 mls/hr IV ONETIME ONE Stop: 03/29/19 03:39 Last Admin: 03/29/19 03:17 Dose: 100 mls/hr Influenza Virus Vaccine (Pharmacy To Dose - Influenza Vaccine) 1 each IM ONETIME ONE Stop: 03/29/19 01:22 Influenza Virus Vaccine (Fluzone Quad 9501-1854 Syringe) 60 mcg IM .ONCE ONE Stop: 03/29/19 01:31 Ketamine HCl (Ketalar) Confirm Administered Dose 500 mg .ROUTE .STK-MED ONE Stop: 03/28/19 21:55 Ketorolac Tromethamine (Toradol) Confirm Administered Dose 30 mg .ROUTE .STK- MED ONE Stop: 03/28/19 22:07 Labetalol HCl (Normodyne) 20 mg IVPUSH ONETIME ONE; Protocol Stop: 03/28/19 21:04 Last Admin: 03/28/19 21:13 Dose: 20 mg Labetalol HCl (Normodyne) 400 mg PO ONETIME ONE Stop: 03/29/19 04:16 Last Admin: 03/29/19 04:29 Dose: 400 mg Labetalol HCl (Normodyne) 400 mg PO ONETIME ONE Stop: 03/29/19 07:04 Last Admin: 03/29/19 07:14 Dose: 400 mg Measles/Mumps/Rubella Vaccine Live (M-M-R Ii Vaccine) 0.5 ml SUBCUT .ONCE ONE Stop: 03/29/19 00:19 Metoclopramide HCl (Reglan) Confirm Administered Dose 10 mg .ROUTE .STK-MED ONE Stop: 03/28/19 21:03 Metoclopramide HCl (Reglan) 10 mg IVPUSH ONETIME ONE Stop: 03/28/19 21:04 Last Admin: 03/28/19 21:19 Dose: 10 mg Misoprostol (Cytotec) Confirm Administered Dose 600 mcg .ROUTE .STK-MED ONE Stop: 03/29/19 02:33 Last Admin: 03/29/19 07:23 Dose: Not Given Misoprostol (Cytotec) 600 mcg PO NOW STA Stop: 03/29/19 03:09 Last Admin: 03/29/19 02:35 Dose: 600 mcg Morphine Sulfate (Duramorph Pf) Confirm Administered Dose 10 mg .ROUTE .STK-MED ONE Stop: 03/28/19 21:16 Nalbuphine HCl (Nubain) 10 mg IVPUSH Q2H PRN PRN Reason: Pain Oxytocin (Pitocin) Confirm Administered Dose 10 unit .ROUTE .STK-MED ONE Stop: 03/28/19 21:18 Phenylephrine HCl (Dada-Synephrine) Confirm Administered Dose 10 mg .ROUTE .STK- MED ONE Stop: 03/28/19 21:16 Sodium Chloride (Saline Flush) 10 ml FLUSH ASDIRECTED PRN PRN Reason: Keep Vein Open Sodium Chloride (Saline Flush) 10 ml FLUSH ASDIRECTED PRN PRN Reason: Keep Vein Open Tranexamic Acid (Cyklokapron) Confirm Administered Dose 1,000 mg .ROUTE .STK- MED ONE Stop: 03/29/19 02:26 Last Admin: 03/29/19 07:23 Dose: Not Given Tranexamic Acid (Cyklokapron) 1,000 mg IVPUSH ONETIME ONE Stop: 03/29/19 03:08 Last Admin: 03/29/19 02:30 Dose: 1,000 mg - Infant Interaction Infant Disposition, : in Room with Family Infant Interaction: Holding Infant Feeding: Bottle Fed Infant Support Person: Significant Other - Recovery Exam Fundal Tone: Firm Fundal Level: At Umbilicus Fundal Placement: Midline Lochia Amount: Small Lochia Color: Rubra/Red Perineum Description: Intact, Minimal Bruising/Swelling Episiotomy/Laceration: None Bladder Status: Indwelling Catheter in Place Urinary Elimination: Indwelling Catheter - Exam General: Alert, Oriented, Cooperative Lungs: Clear to Auscultation, Normal Respiratory Effort Cardiovascular: Regular Rate, Regular Rhythm GI/Abdominal Exam: Soft, Tender (appropriate post op) Extremities: Normal Inspection Skin: Warm, Dry, Intact Wound/Incisions: Dressing Dry and Intact Neurological: Reflexes Equal Bilateral (able to get brachial reflex ) - Problem List & Annotations (1) BMI 45.0-49.9, adult SNOMED Code(s): 307512359, 399323228 Code(s): Z68.42 - BODY MASS INDEX (BMI) 45.0-49.9, ADULT Status: Acute Current Visit: No (2) 38 weeks gestation of SNOMED Code(s): 75906274 Code(s): Z3A.38 - 38 WEEKS GESTATION OF Status: Acute Current Visit: Yes (3) History of SNOMED Code(s): 935543257 Code(s): Z98.891 - HISTORY OF UTERINE SCAR FROM PREVIOUS SURGERY Status: Acute Current Visit: Yes (4) hemorrhage SNOMED Code(s): 62905128 Code(s): O72.1 - OTHER IMMEDIATE HEMORRHAGE Status: Acute Current Visit: Yes Qualifiers: hemorrhage type: delayed hemorrhage Qualified Code(s) : O72.2 - Delayed and secondary hemorrhage (5) S/P SNOMED Code(s): 698236242, 574565526 Code(s): Z98.891 - HISTORY OF UTERINE SCAR FROM PREVIOUS SURGERY Status: Acute Current Visit: No - Problem List Review Problem List Initiated/Reviewed/Updated: Yes - My Orders Last 24 Hours: My Active Orders 03/28/19 20:44 Non Stress Test [RC] PER UNIT ROUTINE Vital Signs [RC] PER UNIT ROUTINE Resuscitation Status Routine 03/28/19 20:45 Vaginal Exam [RC] PRN 03/28/19 20:46 Peripheral IV Care [RC] . DIRECTED 03/28/19 21:03 Communication Order [RC] ROUTINE Heart Tones [RC] PER UNIT ROUTINE Non Stress Test [RC] PER UNIT ROUTINE Procedure Site Prep Instruct [RC] ASDIRECTED Verify Patient Consent Obtain [RC] PER UNIT ROUTINE Vital Signs [RC] PFP 03/28/19 21:04 Peripheral IV Care [RC] . DIRECTED 03/29/19 00:18 Antiembolic Devices [RC] PER UNIT ROUTINE Bedrest [RC] ASDIRECTED Communication Order [RC] ASDIRECTED Communication Order [RC] PER UNIT ROUTINE Notify Provider Intake and Out [RC] ASDIRECTED Notify Provider Status Change [RC] ASDIRECTED Notify Provider Vital Signs [RC] ASDIRECTED Notify Provider [RC] ASDIRECTED RT Incentive Spirometry [RC] Q2HWA Vital Signs [RC] Q1HR Acetaminophen/oxyCODONE [Percocet 325-5 MG] 2 tab PO Q4H PRN Calcium Gluconate 1 gm IV ASDIRECTED PRN Docusate Sodium [Colace] 100 mg PO Q12H PRN Lactated Ringers [Ringers, Lactated] 1,000 ml IV ASDIRECTED Magnesium Sulfate/Water [Magnesium Sulfate in Water Premix] 40 gm in 1,000 ml IV ASDIRECTED Naloxone [Narcan] 0.1 mg IVPUSH SEECOMMENT PRN Ondansetron [Zofran] 4 mg IV Q8H PRN diphenhydrAMINE [Benadryl] 25 mg IVPUSH Q6H PRN Assess Lochia [WOMSER] Per Unit Routine Assess Uterine Involution [WOMSER] Per Unit Routine Blood Pressure [OM.PC] ASDIRECTED Deep Tendon Reflexes [WOMSER] ASDIRECTED Medication Administration Instruction [OM.PC] Per Unit Routine Peripheral IV Discontinue [OM.PC] Routine Sequential Compression Device [OM.PC] Per Unit Routine 03/29/19 01:21 Influenza Vaccine Charge [RC] .DISCHARGE 03/29/19 03:15 Oxytocin/Lactated Ringers [Pitocin in LR 10 Units/1,000 ML] 10 unit in 1,000 ml IV TITRATE 03/29/19 04:30 Ketorolac [Toradol] 30 mg IVPUSH Q6H 03/29/19 10:14 Consult to Case Management/Rehabilitation Aide/Scheduler [CONS] Routine 03/29/19 17:00 ALANINE AMINOTRANSFERASE,ALT [CHEM] Routine ASPARTATE AMNIOTRANSFERASE,AST [CHEM] Routine CBC W/O DIFF,HEMOGRAM [HEME] Routine CREATININE W/GFR [CHEM] Routine MAGNESIUM [CHEM] Routine 03/29/19 22:30 Ibuprofen [Motrin] 600 mg PO Q6H PRN 03/29/19 23:16 Urinary Catheter Removal [RC] Per Unit Routine 03/29/19 Breakfast Regular Diet [DIET] - Assessment Assessment:: 33 y/o G7 now [id number] POD#1 from [facility] at 38 1/7 wks - Plan Plan:: * BP's very labile overnight. Given 400 mg of oral labetalol at about 0400 this am and again at 0700. Likely will need to start mcc medication as question of CHTN in patient. Difficult to know as only 2 appointments. Patient not breast feeding and so may start HCTZ * Continue magnesium for 24 hours . Strict I&O's. Serial BP's. * Repeat CBC this AM with Hb of 11. Likely will drop further given episode of bleeding of at least 1500 cc. Will repeat CBC again this PM. * Bottle feeding * Routine cares otherwise
[2019-03-29] MEDS: Ketorolac 30 MG/ML SDV IVPUSH SCH ×2 (13:39→19:23)
[2019-03-30] MEDS: Ketorolac 30 MG/ML SDV IVPUSH SCH ×2 (01:51→19:53)
[2019-03-30] MEDS: Acetaminophen/oxyCODONE 325-5 MG Tab PO PRN ×3 (03:46→20:30)
--- NOTE | 2019-03-30 08:17 | PCM.PNPP ---
- General Info Date of Service: 03/30/19 Functional Status: Reports: Pain Controlled, Tolerating Diet, Ambulating, Urinating - Review of Systems General: Reports: No Symptoms Pulmonary: Reports: No Symptoms Cardiovascular: Reports: Lightheadedness (slight when getting up) Gastrointestinal: Reports: Abdominal Pain (managed with medications ) Genitourinary: Reports: No Symptoms Musculoskeletal: Reports: No Symptoms Neurological: Reports: No Symptoms - Patient Data Vital Signs - Most Recent: Last Vital Signs Temp 37.1 C 03/30/19 03:41 Pulse 64 03/30/19 03:41 Resp 17 03/30/19 03:41 BP 144/81 H 03/30/19 03:41 Pulse Ox 98 03/30/19 03:41 Weight - Most Recent: 142.428 kg I&O - Last 24 Hours: Intake & Output 03/29/19 03/30/19 03/30/19 22:59 06:59 14:59 Intake Total 1240 1000 Output Total 1950 600 Balance -710 400 Lab Results - Last 24 Hours: Laboratory Results - last 24 hr 03/29/19 03/29/19 Range/Units 17:05 17:05 WBC 19.34 H (3.98-10.04) K/mm3 RBC 3.01 L (3.98-5.22) M/mm3 Hgb 8.7 L D (11.2-15.7) gm/dl Hct 26.6 L (34.1-44.9) % MCV 88.4 (79.4-94.8) fl MCH 28.9 (25.6-32.2) pg MCHC 32.7 (32.2-35.5) g/dl RDW Std Deviation 48.9 H (36.4-46.3) fL Plt Count 150 L (182-369) K/mm3 MPV 11.7 (9.4-12.3) fl Creatinine 0.9 (0.55-1.02) mg/dL Est Cr Clr Drug Dosing 103.85 mL/min Estimated GFR (MDRD) > 60 (>60) mL/min Magnesium 4.7 H (1.8-2.4) mg/dl AST 17 (15-37) U/L ALT 11 L (14-59) U/L Med Orders - Current: Current Medications Calcium Gluconate (Calcium Gluconate) 1 gm IV ASDIRECTED PRN PRN Reason: respiratory distress Diphenhydramine HCl (Benadryl) 25 mg IVPUSH Q6H PRN PRN Reason: Itching or Nausea Docusate Sodium (Colace) 100 mg PO Q12H PRN PRN Reason: Constipation Lactated Ringer's (Ringers, Lactated) 1,000 mls @ 75 mls/hr IV ASDIRECTED [facility]IS[facility] Last Admin: 03/29/19 21:20 Dose: 75 mls/hr Magnesium Sulfate (Magnesium Sulfate In Water Premix) 40 gm in 1,000 mls @ 50 mls/hr IV ASDIRECTED DAISHA Last Admin: 03/29/19 01:38 Dose: 50 mls/hr Oxytocin/Lactated Ringer's (Pitocin In Lr 10 Units/1,000 Ml) 10 unit in 1,000 mls @ 500 mls/hr IV TITRATE DAISHA; Protocol Last Admin: 03/29/19 03:00 Dose: 500 mls/hr Ibuprofen (Motrin) 600 mg PO Q6H PRN PRN Reason: mild pain or fever Naloxone HCl (Narcan) 0.1 mg IVPUSH SEECOMMENT PRN PRN Reason: Respiratory Depression Ondansetron HCl (Zofran) 4 mg IV Q8H PRN PRN Reason: Nausea/Vomiting Last Admin: 03/29/19 04:26 Dose: 4 mg Oxycodone/Acetaminophen (Percocet 325-5 Mg) 2 tab PO Q4H PRN PRN Reason: Pain (moderate 4-6) Last Admin: 03/30/19 03:46 Dose: 2 tab Discontinued Medications Carboprost Tromethamine (Hemabate Ds) Confirm Administered Dose 250 mcg .ROUTE .STK-MED ONE Stop: 03/29/19 02:19 Last Admin: 03/29/19 07:23 Dose: Not Given Carboprost Tromethamine (Hemabate Ds) Confirm Administered Dose 250 mcg .ROUTE .STK-MED ONE Stop: 03/29/19 03:01 Last Admin: 03/29/19 07:24 Dose: Not Given Carboprost Tromethamine (Hemabate Ds) 250 mcg IM ONETIME ONE Stop: 03/29/19 03:07 Last Admin: 03/29/19 02:20 Dose: 250 mcg Carboprost Tromethamine (Hemabate Ds) 250 mcg IM ONETIME ONE Stop: 03/29/19 03:08 Last Admin: 03/29/19 02:51 Dose: 250 mcg Cefazolin Sodium (Ancef) Confirm Administered Dose 2 gm .ROUTE .STK-MED ONE Stop: 03/28/19 21:16 Cefazolin Sodium (Ancef) Confirm Administered Dose 1 gm .ROUTE .STK-MED ONE Stop: 03/28/19 21:52 Cefazolin Sodium/Dextrose (Ancef) Confirm Administered Dose 2 gm IV .STK-MED ONE Stop: 03/29/19 03:12 Last Admin: 03/29/19 07:24 Dose: Not Given Citric Acid/Sodium Citrate (Bicitra Solution) Confirm Administered Dose 30 ml .ROUTE .STK-MED ONE Stop: 03/28/19 21:04 Citric Acid/Sodium Citrate (Bicitra Solution) 30 ml PO ONETIME ONE Stop: 03/28/19 21:04 Last Admin: 03/28/19 21:19 Dose: 30 ml Fentanyl (Sublimaze) Confirm Administered Dose 100 mcg .ROUTE .STK-MED ONE Stop: 03/29/19 02:38 Last Admin: 03/29/19 07:23 Dose: Not Given Fentanyl (Sublimaze) 50 mcg IVPUSH ONETIME ONE Stop: 03/29/19 03:14 Last Admin: 03/29/19 02:40 Dose: 50 mcg Fentanyl (Sublimaze) 50 mcg IVPUSH ONETIME ONE Stop: 03/29/19 03:14 Last Admin: 03/29/19 07:25 Dose: Not Given Lactated Ringer's (Ringers, Lactated) Confirm Administered Dose 1,000 mls @ as directed .ROUTE .STK-MED ONE Stop: 03/28/19 21:04 Cefazolin Sodium/Dextrose 1 gm (/ Premix) 50 mls @ 100 mls/hr IV ONETIME ONE Stop: 03/28/19 21:32 Cefazolin Sodium/Dextrose 2 gm (/ Premix) 50 mls @ 100 mls/hr IV ONETIME ONE Stop: 03/28/19 21:32 Lactated Ringer's (Ringers, Lactated) 1,000 mls @ 125 mls/hr IV ASDIRECTED [facility] Last Admin: 03/28/19 21:20 Dose: 125 mls/hr Oxytocin/Lactated Ringer's (Pitocin In Lr 10 Units/1,000 Ml) 10 unit in 1,000 mls @ 100 mls/hr IV ASDIRECTED [facility]; Protocol Lactated Ringer's (Ringers, Lactated) Confirm Administered Dose 1,000 mls @ as directed .ROUTE .STK-MED ONE Stop: 03/28/19 22:11 Lactated Ringer's (Ringers, Lactated) Confirm Administered Dose 1,000 mls @ as directed .ROUTE .STK-MED ONE Stop: 03/28/19 22:38 Lactated Ringer's (Ringers, Lactated) Confirm Administered Dose 1,000 mls @ as directed .ROUTE .STK-MED ONE Stop: 03/28/19 22:39 Magnesium Sulfate 4 gm/ Premix 50 mls @ 150 mls/hr IV ONETIME ONE Stop: 03/29/19 00:37 Last Admin: 03/29/19 01:09 Dose: 150 mls/hr Magnesium Sulfate 2 gm/ Premix 50 mls @ 300 mls/hr IV ONETIME ONE Stop: 03/29/19 00:27 Last Admin: 03/29/19 00:51 Dose: 300 mls/hr Oxytocin/Lactated Ringer's (Pitocin In Lr 10 Units/1,000 Ml) Confirm Administered Dose 10 unit in 1,000 mls @ as directed IV .STK-MED ONE Stop: 03/29/19 02:49 Last Admin: 03/29/19 07:24 Dose: Not Given Cefazolin Sodium/Dextrose 2 gm (/ Premix) 50 mls @ 100 mls/hr IV ONETIME ONE Stop: 03/29/19 03:39 Last Admin: 03/29/19 03:17 Dose: 100 mls/hr Influenza Virus Vaccine (Pharmacy To Dose - Influenza Vaccine) 1 each IM ONETIME ONE Stop: 03/29/19 01:22 Influenza Virus Vaccine (Fluzone Quad [id number] Syringe) 60 mcg IM .ONCE ONE Stop: 03/29/19 01:31 Ketamine HCl (Ketalar) Confirm Administered Dose 500 mg .ROUTE .STK-MED ONE Stop: 03/28/19 21:55 Ketorolac Tromethamine (Toradol) Confirm Administered Dose 30 mg .ROUTE .STK- MED ONE Stop: 03/28/19 22:07 Ketorolac Tromethamine (Toradol) 30 mg IVPUSH Q6H [facility] Stop: 03/29/19 16:31 Ketorolac Tromethamine (Toradol) 30 mg IVPUSH Q6H [facility] Stop: 03/30/19 01:31 Last Admin: 03/30/19 01:51 Dose: 30 mg Labetalol HCl (Normodyne) 20 mg IVPUSH ONETIME ONE; Protocol Stop: 03/28/19 21:04 Last Admin: 03/28/19 21:13 Dose: 20 mg Labetalol HCl (Normodyne) 400 mg PO ONETIME ONE Stop: 03/29/19 04:16 Last Admin: 03/29/19 04:29 Dose: 400 mg Labetalol HCl (Normodyne) 400 mg PO ONETIME ONE Stop: 03/29/19 07:04 Last Admin: 03/29/19 07:14 Dose: 400 mg Measles/Mumps/Rubella Vaccine Live (M-M-R Ii Vaccine) 0.5 ml SUBCUT .ONCE ONE Stop: 03/29/19 00:19 Metoclopramide HCl (Reglan) Confirm Administered Dose 10 mg .ROUTE .STK-MED ONE Stop: 03/28/19 21:03 Metoclopramide HCl (Reglan) 10 mg IVPUSH ONETIME ONE Stop: 03/28/19 21:04 Last Admin: 03/28/19 21:19 Dose: 10 mg Misoprostol (Cytotec) Confirm Administered Dose 600 mcg .ROUTE .STK-MED ONE Stop: 03/29/19 02:33 Last Admin: 03/29/19 07:23 Dose: Not Given Misoprostol (Cytotec) 600 mcg PO NOW STA Stop: 03/29/19 03:09 Last Admin: 03/29/19 02:35 Dose: 600 mcg Morphine Sulfate (Duramorph Pf) Confirm Administered Dose 10 mg .ROUTE .STK-MED ONE Stop: 03/28/19 21:16 Nalbuphine HCl (Nubain) 10 mg IVPUSH Q2H PRN PRN Reason: Pain Oxytocin (Pitocin) Confirm Administered Dose 10 unit .ROUTE .STK-MED ONE Stop: 03/28/19 21:18 Phenylephrine HCl (Dada-Synephrine) Confirm Administered Dose 10 mg .ROUTE .STK- MED ONE Stop: 03/28/19 21:16 Sodium Chloride (Saline Flush) 10 ml FLUSH ASDIRECTED PRN PRN Reason: Keep Vein Open Sodium Chloride (Saline Flush) 10 ml FLUSH ASDIRECTED PRN PRN Reason: Keep Vein Open Tranexamic Acid (Cyklokapron) Confirm Administered Dose 1,000 mg .ROUTE .STK- MED ONE Stop: 03/29/19 02:26 Last Admin: 03/29/19 07:23 Dose: Not Given Tranexamic Acid (Cyklokapron) 1,000 mg IVPUSH ONETIME ONE Stop: 03/29/19 03:08 Last Admin: 03/29/19 02:30 Dose: 1,000 mg - Interaction Infant Disposition, : in Room with Family Infant Interaction: Holding Feeding: Bottle Fed Support Person: Significant Other - Recovery Exam Fundal Tone: Firm Fundal Level: At Umbilicus Fundal Placement: Midline Lochia Amount: Small Lochia Color: Rubra/Red Perineum Description: Intact, Minimal Bruising/Swelling Episiotomy/Laceration: None Bladder Status: Voiding Urinary Elimination: Voided - Exam General: Alert, Oriented, Cooperative Lungs: Clear to Auscultation, Normal Respiratory Effort Cardiovascular: Regular Rate, Regular Rhythm GI/Abdominal Exam: Soft, Tender (appropriate post op) Extremities: Normal Inspection Skin: Warm, Dry, Intact Wound/Incisions: Healing Well, No Drainage - Problem List & Annotations (1) BMI 45.0-49.9, adult SNOMED Code(s): 884257472, 857538079 Code(s): Z68.42 - BODY MASS INDEX (BMI) 45.0-49.9, ADULT Status: Acute Current Visit: No (2) 38 weeks gestation of SNOMED Code(s): 79410854 Code(s): Z3A.38 - 38 WEEKS GESTATION OF Status: Acute Current Visit: Yes (3) History of SNOMED Code(s): 747051116 Code(s): Z98.891 - HISTORY OF UTERINE SCAR FROM PREVIOUS SURGERY Status: Acute Current Visit: Yes (4) hemorrhage SNOMED Code(s): 52041645 Code(s): O72.1 - OTHER IMMEDIATE HEMORRHAGE Status: Acute Current Visit: Yes Qualifiers: hemorrhage type: delayed hemorrhage Qualified Code(s) : O72.2 - Delayed and secondary hemorrhage (5) S/P SNOMED Code(s): 659221240, 041089069 Code(s): Z98.891 - HISTORY OF UTERINE SCAR FROM PREVIOUS SURGERY Status: Acute Current Visit: No - Problem List Review Problem List Initiated/Reviewed/Updated: Yes - My Orders Last 24 Hours: My Active Orders 03/29/19 10:14 Consult to Case Management/Television Analyzer [CONS] Routine 03/29/19 23:16 Urinary Catheter Removal [RC] Per Unit Routine 03/30/19 07:30 Ibuprofen [Motrin] 600 mg PO Q6H PRN - Assessment Assessment:: 33 y/o G7 now P6016 POD#2 from [facility] at 38 1/7 wks - Plan Plan:: * BP's normal to low mild range overnight. Have not given additional anti- hypertensives yet. Will continue to monitor * S/p 24 hours of magnesium * CBC this Am with Hb of 8. Similar to yesterday PM. Continue to monitor for now. Can consider transfusion for patient symptoms if needed * Bottle feeding * Discharge home tomorrow
[2019-03-30] MEDS: Ibuprofen 600 MG Tab PO PRN (08:22)
[2019-03-30] MEDS ORDERED: diphenhydrAMINE 50 MG/ML SDV IV ONE (13:52)
--- NOTE | 2019-03-30 13:52 | PCM.SN ---
- Free Text/Narrative Note: Patient has been more symptomatic with activity today. More complaints of lightheadedness. Desires transfusion. Will given 1 unit PRBC. Reassess CBC in AM. Patricia Owens MD
[2019-03-30] MEDS ORDERED: Sodium Chloride 0.9% 1,000 ML IV SCH (14:00)
[2019-03-30] MEDS ORDERED: Lisinopril 10 MG Tab PO ONE (16:09)
[2019-03-31] MEDS ORDERED: Labetalol 100 MG/20 ML MDV IVPUSH ONE (01:04)
--- NOTE | 2019-03-31 07:16 | PCM.DCSUM1 ---
Discharge Summary - Discharge Data Discharge Date: 03/31/19 Discharge Disposition: Home, Self-Care 01 Condition: Good - Referral to Home Health Primary Care Physician: Patricia Owens MD - Discharge Diagnosis/Problem(s) (1) BMI 45.0-49.9, adult SNOMED Code(s): 071004280, 124640409 ICD Code: Z68.42 - BODY MASS INDEX (BMI) 45.0-49.9, ADULT Status: Acute (2) 38 weeks gestation of SNOMED Code(s): 49606616 ICD Code: Z3A.38 - 38 WEEKS GESTATION OF Status: Acute (3) History of SNOMED Code(s): 132251577 ICD Code: Z98.891 - HISTORY OF UTERINE SCAR FROM PREVIOUS SURGERY Status: Acute (4) hemorrhage SNOMED Code(s): 19845275 ICD Code: O72.1 - OTHER IMMEDIATE HEMORRHAGE Status: Acute Qualifiers: hemorrhage type: delayed hemorrhage Qualified Code(s) : O72.2 - Delayed and secondary hemorrhage (5) S/P SNOMED Code(s): 375351616, 787831136 ICD Code: Z98.891 - HISTORY OF UTERINE SCAR FROM PREVIOUS SURGERY Status: Acute - Patient Summary/Data Operative Procedure(s) Performed: Repeat low transverse - vacuum assisted Complications: None Consults: Consultations 03/29/19 10:14 Consult to Case Management/Executive Receptionist [CONS] Routine Recommended Follow-up Testing/Procedures: Follow up in 1 week for BP check, incision check Hospital Course: 33 y/o woan at 38 1/7 wks who presents for concerns of contractions. Also noted to have several severe range BP's on admission. Given IV labetalol and taken to repeat . Patient with significant scarring at fascia. Surgery needed to vacuum assisted given maternal obesity. See operative note for full details. patient maintained on magnesium, but about 4 hours or so she had a significant hemorrhage of about 1.5L. This was managed by pausing magnesium and administering tranexamic acid, cytotec, and hemabate x2. Also had exploration of lower uterine segment. Did well and magnesium restarted and ran for 24 hours . BP's began to increase later in hospitalization course and so started on lisinopril. Also had Hb drop to 8, but was symptomatic and so was transfused one unit PRBC with good response. She was otherwise discharged home on POD#3 with plans to follow up in 1 week in clinic. - Patient Instructions Diet: Regular Diet as Tolerated Activity: No Lifting Over 10 Pounds Activity, Other: Pelvic rest for 6 weeks Driving: Do Not Drive (while taking narcotics ) Showering/Bathing: May Shower, No Tub Bathing/Swimming Wound/Incision Care: Keep Operative Site/Wound Site Clean and Dry Notify Provider of: Fever, Increased Pain, Swelling and Redness, Drainage, Nausea and/or Vomiting - Discharge Plan *PRESCRIPTION DRUG MONITORING PROGRAM REVIEWED*: No *COPY OF PRESCRIPTION DRUG MONITORING REPORT IN PATIENT MICHAEL: No Prescriptions/Med Rec: Acetaminophen/oxyCODONE [Percocet 325-5 MG] 2 tab PO Q4H PRN #20 tablet PRN Reason: Pain (Moderate 4-6) Lisinopril 10 mg PO DAILY #30 tablet Home Medications: Home Meds Pnv No.122/Iron/Folic Acid [ Multi Tablet] 1 each PO DAILY 01/28/19 [ History] Acetaminophen/oxyCODONE [Percocet 325-5 MG] 2 tab PO Q4H PRN #20 tablet [Rx] Docusate Sodium [Colace] 100 mg PO Q12H PRN cap 03/31/19 [Rx] Lisinopril 10 mg PO DAILY #30 tablet 03/31/19 [Rx] Patient Handouts: Hypertension, Care After Delivery, Steps to Quit Smoking Referrals: Patricia Owens MD [Primary Care Provider] - (1 week for BP and post op check ) - Discharge Summary/Plan Comment DC Time >30 min.: No - Patient Data Vitals - Most Recent: Last Vital Signs Temp 37.1 C 03/31/19 04:15 Pulse 67 03/31/19 04:15 Resp 16 03/31/19 04:15 BP 152/84 H 03/31/19 04:15 Pulse Ox 96 03/31/19 04:15 Weight - Most Recent: 142.428 kg I&O - Last 24 hours: Intake & Output 03/30/19 03/31/19 03/31/19 22:59 06:59 14:59 Intake Total 1750 700 Output Total 1300 700 Balance 450 0 Lab Results - Last 24 hrs: Laboratory Results - last 24 hr 03/28/19 03/30/19 03/31/19 Range/Units 21:06 08:50 05:45 WBC 12.48 H 11.42 H (3.98-10.04) K/mm3 RBC 2.82 L 2.94 L (3.98-5.22) M/mm3 Hgb 8.0 L 8.4 L (11.2-15.7) gm/dl Hct 25.1 L 26.4 L (34.1-44.9) % MCV 89.0 89.8 (79.4-94.8) fl MCH 28.4 28.6 (25.6-32.2) pg MCHC 31.9 L 31.8 L (32.2-35.5) g/dl RDW Std Deviation 51.1 H 52.7 H (36.4-46.3) fL Plt Count 171 L 207 (182-369) K/mm3 MPV 11.5 11.3 (9.4-12.3) fl Blood Type O POSITIVE Gel Antibody Screen Negative Crossmatch See Detail Med Orders - Current: Current Medications Calcium Gluconate (Calcium Gluconate) 1 gm IV ASDIRECTED PRN PRN Reason: respiratory distress Diphenhydramine HCl (Benadryl) 25 mg IVPUSH Q6H PRN PRN Reason: Itching or Nausea Docusate Sodium (Colace) 100 mg PO Q12H PRN PRN Reason: Constipation Magnesium Sulfate (Magnesium Sulfate In Water Premix) 40 gm in 1,000 mls @ 50 mls/hr IV ASDIRECTED DAISHA Last Admin: 03/29/19 01:38 Dose: 50 mls/hr Oxytocin/Lactated Ringer's (Pitocin In Lr 10 Units/1,000 Ml) 10 unit in 1,000 mls @ 500 mls/hr IV TITRATE DAISHA; Protocol Last Admin: 03/29/19 03:00 Dose: 500 mls/hr Sodium Chloride (Normal Saline) 1,000 mls @ 125 mls/hr IV ASDIRECTED DAISHA Last Admin: 03/30/19 15:38 Dose: 125 mls/hr Ibuprofen (Motrin) 600 mg PO Q6H PRN PRN Reason: mild pain or fever Last Admin: 03/30/19 08:22 Dose: 600 mg Lisinopril (Prinivil) 10 mg PO DAILY DAISHA Naloxone HCl (Narcan) 0.1 mg IVPUSH SEECOMMENT PRN PRN Reason: Respiratory Depression Ondansetron HCl (Zofran) 4 mg IV Q8H PRN PRN Reason: Nausea/Vomiting Last Admin: 03/29/19 04:26 Dose: 4 mg Oxycodone/Acetaminophen (Percocet 325-5 Mg) 2 tab PO Q4H PRN PRN Reason: Pain (moderate 4-6) Last Admin: 03/30/19 20:30 Dose: 2 tab Discontinued Medications Carboprost Tromethamine (Hemabate Ds) Confirm Administered Dose 250 mcg .ROUTE .STK-MED ONE Stop: 03/29/19 02:19 Last Admin: 03/29/19 07:23 Dose: Not Given Carboprost Tromethamine (Hemabate Ds) Confirm Administered Dose 250 mcg .ROUTE .STK-MED ONE Stop: 03/29/19 03:01 Last Admin: 03/29/19 07:24 Dose: Not Given Carboprost Tromethamine (Hemabate Ds) 250 mcg IM ONETIME ONE Stop: 03/29/19 03:07 Last Admin: 03/29/19 02:20 Dose: 250 mcg Carboprost Tromethamine (Hemabate Ds) 250 mcg IM ONETIME ONE Stop: 03/29/19 03:08 Last Admin: 03/29/19 02:51 Dose: 250 mcg Cefazolin Sodium (Ancef) Confirm Administered Dose 2 gm .ROUTE .STK-MED ONE Stop: 03/28/19 21:16 Cefazolin Sodium (Ancef) Confirm Administered Dose 1 gm .ROUTE .STK-MED ONE Stop: 03/28/19 21:52 Cefazolin Sodium/Dextrose (Ancef) Confirm Administered Dose 2 gm IV .STK-MED ONE Stop: 03/29/19 03:12 Last Admin: 03/29/19 07:24 Dose: Not Given Citric Acid/Sodium Citrate (Bicitra Solution) Confirm Administered Dose 30 ml .ROUTE .STK-MED ONE Stop: 03/28/19 21:04 Citric Acid/Sodium Citrate (Bicitra Solution) 30 ml PO ONETIME ONE Stop: 03/28/19 21:04 Last Admin: 03/28/19 21:19 Dose: 30 ml Diphenhydramine HCl (Benadryl) 25 mg IV ONETIME ONE Stop: 03/30/19 13:53 Last Admin: 03/30/19 15:35 Dose: 25 mg Fentanyl (Sublimaze) Confirm Administered Dose 100 mcg .ROUTE .STK-MED ONE Stop: 03/29/19 02:38 Last Admin: 03/29/19 07:23 Dose: Not Given Fentanyl (Sublimaze) 50 mcg IVPUSH ONETIME ONE Stop: 03/29/19 03:14 Last Admin: 03/29/19 02:40 Dose: 50 mcg Fentanyl (Sublimaze) 50 mcg IVPUSH ONETIME ONE Stop: 03/29/19 03:14 Last Admin: 03/29/19 07:25 Dose: Not Given Lactated Ringer's (Ringers, Lactated) Confirm Administered Dose 1,000 mls @ as directed .ROUTE .STK-MED ONE Stop: 03/28/19 21:04 Cefazolin Sodium/Dextrose 1 gm (/ Premix) 50 mls @ 100 mls/hr IV ONETIME ONE Stop: 03/28/19 21:32 Cefazolin Sodium/Dextrose 2 gm (/ Premix) 50 mls @ 100 mls/hr IV ONETIME ONE Stop: 03/28/19 21:32 Lactated Ringer's (Ringers, Lactated) 1,000 mls @ 125 mls/hr IV ASDIRECTED [facility]IS[facility] Last Admin: 03/28/19 21:20 Dose: 125 mls/hr Oxytocin/Lactated Ringer's (Pitocin In Lr 10 Units/1,000 Ml) 10 unit in 1,000 mls @ 100 mls/hr IV ASDIRECTED [facility]; Protocol Lactated Ringer's (Ringers, Lactated) Confirm Administered Dose 1,000 mls @ as directed .ROUTE .STK-MED ONE Stop: 03/28/19 22:11 Lactated Ringer's (Ringers, Lactated) Confirm Administered Dose 1,000 mls @ as directed .ROUTE .STK-MED ONE Stop: 03/28/19 22:38 Lactated Ringer's (Ringers, Lactated) Confirm Administered Dose 1,000 mls @ as directed .ROUTE .STK-MED ONE Stop: 03/28/19 22:39 Lactated Ringer's (Ringers, Lactated) 1,000 mls @ 75 mls/hr IV ASDIRECTED [facility]IS[facility] Last Admin: 03/29/19 21:20 Dose: 75 mls/hr Magnesium Sulfate 4 gm/ Premix 50 mls @ 150 mls/hr IV ONETIME ONE Stop: 03/29/19 00:37 Last Admin: 03/29/19 01:09 Dose: 150 mls/hr Magnesium Sulfate 2 gm/ Premix 50 mls @ 300 mls/hr IV ONETIME ONE Stop: 03/29/19 00:27 Last Admin: 03/29/19 00:51 Dose: 300 mls/hr Oxytocin/Lactated Ringer's (Pitocin In Lr 10 Units/1,000 Ml) Confirm Administered Dose 10 unit in 1,000 mls @ as directed IV .STK-MED ONE Stop: 03/29/19 02:49 Last Admin: 03/29/19 07:24 Dose: Not Given Cefazolin Sodium/Dextrose 2 gm (/ Premix) 50 mls @ 100 mls/hr IV ONETIME ONE Stop: 03/29/19 03:39 Last Admin: 03/29/19 03:17 Dose: 100 mls/hr Influenza Virus Vaccine (Pharmacy To Dose - Influenza Vaccine) 1 each IM ONETIME ONE Stop: 03/29/19 01:22 Influenza Virus Vaccine (Fluzone Quad [id number] Syringe) 60 mcg IM .ONCE ONE Stop: 03/29/19 01:31 Ketamine HCl (Ketalar) Confirm Administered Dose 500 mg .ROUTE .STK-MED ONE Stop: 03/28/19 21:55 Ketorolac Tromethamine (Toradol) Confirm Administered Dose 30 mg .ROUTE .STK- MED ONE Stop: 03/28/19 22:07 Ketorolac Tromethamine (Toradol) 30 mg IVPUSH Q6H [facility] Stop: 03/29/19 16:31 Last Admin: 03/30/19 19:53 Dose: Not Given Ketorolac Tromethamine (Toradol) 30 mg IVPUSH Q6H [facility] Stop: 03/30/19 01:31 Last Admin: 03/30/19 01:51 Dose: 30 mg Labetalol HCl (Normodyne) 20 mg IVPUSH ONETIME ONE; Protocol Stop: 03/28/19 21:04 Last Admin: 03/28/19 21:13 Dose: 20 mg Labetalol HCl (Normodyne) 400 mg PO ONETIME ONE Stop: 03/29/19 04:16 Last Admin: 03/29/19 04:29 Dose: 400 mg Labetalol HCl (Normodyne) 400 mg PO ONETIME ONE Stop: 03/29/19 07:04 Last Admin: 03/29/19 07:14 Dose: 400 mg Labetalol HCl (Normodyne) 20 mg IVPUSH ONETIME ONE; Protocol Stop: 03/31/19 01:05 Last Admin: 03/31/19 01:20 Dose: 20 mg Lisinopril (Prinivil) 10 mg PO ONETIME ONE Stop: 03/30/19 16:10 Last Admin: 03/30/19 16:35 Dose: 10 mg Measles/Mumps/Rubella Vaccine Live (M-M-R Ii Vaccine) 0.5 ml SUBCUT .ONCE ONE Stop: 03/29/19 00:19 Metoclopramide HCl (Reglan) Confirm Administered Dose 10 mg .ROUTE .STK-MED ONE Stop: 03/28/19 21:03 Metoclopramide HCl (Reglan) 10 mg IVPUSH ONETIME ONE Stop: 03/28/19 21:04 Last Admin: 03/28/19 21:19 Dose: 10 mg Misoprostol (Cytotec) Confirm Administered Dose 600 mcg .ROUTE .STK-MED ONE Stop: 03/29/19 02:33 Last Admin: 03/29/19 07:23 Dose: Not Given Misoprostol (Cytotec) 600 mcg PO NOW STA Stop: 03/29/19 03:09 Last Admin: 03/29/19 02:35 Dose: 600 mcg Morphine Sulfate (Duramorph Pf) Confirm Administered Dose 10 mg .ROUTE .STK-MED ONE Stop: 03/28/19 21:16 Nalbuphine HCl (Nubain) 10 mg IVPUSH Q2H PRN PRN Reason: Pain Oxytocin (Pitocin) Confirm Administered Dose 10 unit .ROUTE .STK-MED ONE Stop: 03/28/19 21:18 Phenylephrine HCl (Dada-Synephrine) Confirm Administered Dose 10 mg .ROUTE .STK- MED ONE Stop: 03/28/19 21:16 Sodium Chloride (Saline Flush) 10 ml FLUSH ASDIRECTED PRN PRN Reason: Keep Vein Open Sodium Chloride (Saline Flush) 10 ml FLUSH ASDIRECTED PRN PRN Reason: Keep Vein Open Tranexamic Acid (Cyklokapron) Confirm Administered Dose 1,000 mg .ROUTE .STK- MED ONE Stop: 03/29/19 02:26 Last Admin: 03/29/19 07:23 Dose: Not Given Tranexamic Acid (Cyklokapron) 1,000 mg IVPUSH ONETIME ONE Stop: 03/29/19 03:08 Last Admin: 03/29/19 02:30 Dose: 1,000 mg
[2019-03-31] MEDS: Acetaminophen/oxyCODONE 325-5 MG Tab PO PRN (08:13)
[2019-03-31] MEDS ORDERED: Lisinopril 10 MG Tab PO SCH (09:00)
[2019-03-31 11:59] VITALS: PULSE 70
[2019-03-31] MEDS ORDERED: Measles, Mumps & Rubella Vaccine 0.5 ML SDV SUBCUT ONE (12:29)
[2019-03-31] MEDS ORDERED: FLU Vacc QS2019-20(6MOS+)/PF 60 MCG/0.5 ML SYRINGE IM ONE (13:00)
[2019-03-31] MEDS: Ibuprofen 600 MG Tab PO PRN (13:46)
[2019-03-31 16:47] VITALS: BP 125/49
== END 2019-03-31 16:47 | disposition home or self-care (01) | DRG 787 ==
LOC: JD.OB 20:08 → JD.OBCHECK 20:08 → JD.MS 22:17 → JD.OB 03-29 17:00
PROVIDERS: ADMIT Obstetrics & Gynecology; ATTEND Obstetrics & Gynecology
PROC: 10D00Z1 Extraction of Products of Conception, Low, Open Approach (ICD-10-PCS; principal; 2019-03-28)
PROC: 30233N1 Transfusion of Nonautologous Red Blood Cells into Peripheral Vein, Percutaneous Approach (ICD-10-PCS; 2019-03-30)
PROC: 3E02340 Introduction of Influenza Vaccine into Muscle, Percutaneous Approach (ICD-10-PCS; 2019-03-31)
PROC: 3E0234Z Introduction of Serum, Toxoid and Vaccine into Muscle, Percutaneous Approach (ICD-10-PCS; 2019-03-31)
DX: O34.211 Maternal care for low transverse scar from previous cesarean delivery (principal); O72.2 Delayed and secondary postpartum hemorrhage; O14.14 Severe pre-eclampsia complicating childbirth; O99.214 Obesity complicating childbirth; E66.9 Obesity, unspecified; O99.02 Anemia complicating childbirth; D64.9 Anemia, unspecified; O77.0 Labor and delivery complicated by meconium in amniotic fluid; Z23 Encounter for immunization; Z3A.38 38 weeks gestation of pregnancy; Z37.0 Single live birth; Z88.5 Allergy status to narcotic agent; Z79.899 Other long term (current) drug therapy; Z87.891 Personal history of nicotine dependence; Z90.49 Acquired absence of other specified parts of digestive tract; Z88.0 Allergy status to penicillin
CPT/HCPCS: 01961; 36415; 36430; 59025; 80306; 82565; 83036; 83615; 83735; 84450; 84460; 84520; 84550; 85025; 85027; 86592; 86850; 86900; 86901; 86922; 90471; 90686; 90707; A9270-GY; G0008; J0690; J1200; J1885; J2270; J2370; J2405; J2590; J2765; J3010; J3475; J3490; J7040; J7120; P9016